=== PATIENT | female | born 1995 | race Caucasian/White ===

== ENCOUNTER 2018-12-17 08:49 | Outpatient (CLI) | payer OTHER | END 2018-12-17 20:08 | disposition home or self-care (01) | LOC: MRD 08:49 | PROVIDERS: ATTEND Internal Medicine | DX: Z49.02 Encounter for fitting and adjustment of peritoneal dialysis catheter (principal) | CPT/HCPCS: 74018 ==

== ENCOUNTER 2019-09-04 16:39 | Emergency (ER) | payer OTHER ==
[~2019-09-04] VITALS: Ht 162.6 cm; Wt 83.1 kg
[2019-09-04 16:59] VITALS: BP 165/106
[2019-09-04] MEDS ORDERED: ONDANSETRON 4 MG/2 ML VIAL IVP ONE (18:20)
[2019-09-04] MEDS ORDERED: DICYCLOMINE HCL LIQUID 20 MG, ALUMINUM HYD/MAG/SIMETHICONE 30 ML, LIDOCAINE VISCOUS 2% ... PO ONE ×3 (18:35)
[2019-09-04] MEDS ORDERED: MORPHINE SULFATE 4 MG/ML SYR IVP ONE (18:35)
[2019-09-04] MEDS ORDERED: LIDOCAINE VISCOUS 2% 20 ML UDC ONE (18:40)
[2019-09-04] MEDS ORDERED: ALUMINUM HYD/MAG/SIMETHICONE 30 ML UDC ONE (18:40)
[2019-09-04] MEDS ORDERED: DICYCLOMINE HCL LIQUID 10 MG/5 ML UDC ONE (18:40)
[2019-09-04 18:50] LABS: BASOPHILS % (AUTO) 0.2 % (0.0-2.0); EOSINOPHILS # (AUTO) 0.1 K/uL (0-0.4); EOSINOPHILS % (AUTO) 0.6 % (0.0-4.0); HEMATOCRIT 34.5 % (36-48); HEMOGLOBIN 11.2 g/dL (12.0-16.0); MEAN CORPUSCULAR HEMOGLOBIN 28 pg (27-31); MEAN CORPUSCULAR HGB CONC 32 g/dL (33-37); MEAN CORPUSCULAR VOLUME 87.4 fL (80-94); MONOCYTES # (AUTO) 0.7 K/uL (0.8-1.0); MONOCYTES % (AUTO) 5.7 % (1.7-9.3); NEUTROPHILS # (AUTO) 10.5 K/uL (1.8-7.7); NEUTROPHILS % (AUTO) 85.5 % (42.2-75.2); PLATELET COUNT (AUTO) 187 K/uL (140-450); RED BLOOD CELL COUNT(AUTO) 3.95 MIL/uL (4.20-5.40); RED CELL DISTRIBUTION WIDTH 13.8 % (11.6-13.7); WHITE BLOOD COUNT (AUTO) 12.3 K/uL (4.8-10.8)
[2019-09-04 19:04] LABS: ALBUMIN 3.1 g/dL (3.4-5.0); ANION GAP 17.1 (8-16); POTASSIUM 4.1 mmol/L (3.5-5.1); TOTAL BILIRUBIN 0.3 mg/dL (0.0-1.0)
[2019-09-04] MEDS ORDERED: NACL 0.9% 500 ML IV ONE (19:05)
[2019-09-04 19:10] LABS: CREATININE 16.5 mg/dL (0.6-1.3)
[2019-09-04] MEDS ORDERED: KETOROLAC 30 MG/ML VIAL IVP ONE (20:50)
[2019-09-04] MEDS ORDERED: PANTOPRAZOLE 40 MG INJ VIAL IVP ONE (20:50)
[2019-09-04 21:30] VITALS: BP 137/88
[2019-09-05 00:45] LABS: APPEARANCE,URINE CLEAR (CLEAR); BILIRUBIN,URINE NEGATIVE (NEGATIVE); BLOOD, URINE 1+ (NEGATIVE); COLOR,URINE YELLOW (YELLOW); LEUKOCYTE ESTERASE ,URINE NEGATIVE (NEGATIVE); NITRITE, URINE NEGATIVE (NEGATIVE); UGLUCOSE NEGATIVE (NEGATIVE)
[2019-09-05 00:57] LABS: RBC,URINE 0-5 /HPF (0-5); WBC,URINE 0-5 /HPF (0-5)
== END 2019-09-04 21:32 | disposition home or self-care (01) ==
LOC: MED 16:39
DX: I12.0 Hypertensive chronic kidney disease with stage 5 chronic kidney disease or end stage renal disease (principal); N18.6 End stage renal disease; R10.9 Unspecified abdominal pain; F12.10 Cannabis abuse, uncomplicated; Z99.2 Dependence on renal dialysis
CPT/HCPCS: 36415; 71045; 74021; 80053; 81001; 82150; 83690; 83880; 85025; 93005; 96374; 96375; 99285; C9113; J1885; J2270; J2405; J7030

== ENCOUNTER 2019-09-22 15:56 | Emergency (ER) | payer OTHER ==
[~2019-09-22] VITALS: Ht 162.6 cm; Wt 79.4 kg
[~2019-09-22 15:56] MED LIST: LISI10TA11 PO
[2019-09-22 16:03] VITALS: BP 146/89
[2019-09-22] MEDS ORDERED: MORPHINE SULFATE 4 MG/ML SYR IVP ONE (16:20)
[2019-09-22 16:43] LABS: BASOPHILS % (AUTO) 0.3 % (0.0-2.0); EOSINOPHILS # (AUTO) 0.1 K/uL (0-0.4); EOSINOPHILS % (AUTO) 1.6 % (0.0-4.0); HEMATOCRIT 25.9 % (36-48); HEMOGLOBIN 8.6 g/dL (12.0-16.0); LYMPHOCYTES # (AUTO) 0.9 K/uL (2.5-16.5); LYMPHOCYTES % (AUTO) 12.8 % (20.5-51.1); MEAN CORPUSCULAR HEMOGLOBIN 29 pg (27-31); MEAN CORPUSCULAR HGB CONC 33 g/dL (33-37); MEAN CORPUSCULAR VOLUME 88.2 fL (80-94); MONOCYTES # (AUTO) 0.6 K/uL (0.8-1.0); MONOCYTES % (AUTO) 8.6 % (1.7-9.3); NEUTROPHILS # (AUTO) 5.1 K/uL (1.8-7.7); NEUTROPHILS % (AUTO) 76.7 % (42.2-75.2); PLATELET COUNT (AUTO) 188 K/uL (140-450); RED BLOOD CELL COUNT(AUTO) 2.94 MIL/uL (4.20-5.40); RED CELL DISTRIBUTION WIDTH 14.5 % (11.6-13.7); WHITE BLOOD COUNT (AUTO) 6.7 K/uL (4.8-10.8)
[2019-09-22 16:59] LABS: ALBUMIN 2.4 g/dL (3.4-5.0); ANION GAP 8.3 (8-16); CARBON DIOXIDE 31.8 mmol/L (21-32); POTASSIUM 3.1 mmol/L (3.5-5.1); TOTAL BILIRUBIN 0.2 mg/dL (0.0-1.0)
[2019-09-22 17:35] LABS: APPEARANCE,URINE CLEAR (CLEAR); BILIRUBIN,URINE NEGATIVE (NEGATIVE); BLOOD, URINE TRACE-I (NEGATIVE); COLOR,URINE YELLOW (YELLOW); LEUKOCYTE ESTERASE ,URINE NEGATIVE (NEGATIVE); NITRITE, URINE NEGATIVE (NEGATIVE); PH,URINE 8.5 (5.0-9.0); UGLUCOSE TRACE (NEGATIVE)
[2019-09-22 17:55] LABS: RBC,URINE 0-5 /HPF (0-5)
[2019-09-22 17:56] LABS: WBC,URINE 0-5 /HPF (0-5)
[2019-09-22 18:09] VITALS: BP 141/86
== END 2019-09-22 18:09 | disposition home or self-care (01) ==
LOC: MED 15:56
DX: R51 Headache (principal); D64.9 Anemia, unspecified; E87.6 Hypokalemia; F12.90 Cannabis use, unspecified, uncomplicated; I10 Essential (primary) hypertension; N28.9 Disorder of kidney and ureter, unspecified; R53.1 Weakness; Z79.899 Other long term (current) drug therapy
CPT/HCPCS: 36415; 36600; 71045; 80053; 81001; 82803; 83605; 85025; 87040; 87086; 93005; 96374; 99285; J2270

== ENCOUNTER 2020-03-28 20:02 | Inpatient (IN) | payer OTHER, SELFPAY ==
[~2020-03-28] VITALS: Ht 162.6 cm; Wt 84.8 kg
[2020-03-28 20:26] VITALS: BP 114/76
--- NOTE | 2020-03-28 20:56 | NUR ---
PT W/C ASSISTED TO BED #4
--- NOTE | 2020-03-28 21:15 | NUR ---
25 Y/O FEMALE BIB SELF WITH C/O "SEVERE" 10/10 LOWER ABDOMINAL & PELVIC PAIN. SHE PRESENTS WITH NAUSEA AND VOMITING. SHE REPORTS SYMPTOMS STARTING TODAY THIS MORNING. REPORTS TAKING TYLENOL 1000MG FOR PAIN. ABDOMEN WAS FIRM, ROUND AND NON-TENDER TO TOUCH. ACTIVE BOWEL SOUNDS X 4 QUADRANTS. REPORTS HAVING ESRD STAGE 5. PT PLACED ON PLANT WRAPPER, PULSE OXIMETRY AND BP MONITORING. BED LOCKED AND IN LOWEST POSITION. PMHX: ESRD STAGE 5 NKA.
--- NOTE | 2020-03-28 21:16 | NUR ---
PT REPORTS RECEVING PERITONEAL DIALYSIS EVERY NIGHT FOR ESRD STATES "SHE DID NOT HAVE IT DONE TONIGHT". ACCESS SITE NOTED ON LUQ. SITE WAS INTACT NO REDNESS, SWELLING OR ABNORMAL DISCHARGE NOTED TO SITE.
[2020-03-28] MEDS ORDERED: ACETAMINOPHEN 325 MG TAB PO ONE (21:20)
[2020-03-28] MEDS ORDERED: ONDANSETRON 4 MG/2 ML VIAL IVP ONE (21:20)
[2020-03-28] MEDS ORDERED: MORPHINE SULFATE 4 MG/ML SYR IVP ONE ×2 (21:20→22:25)
--- NOTE | 2020-03-28 21:30 | NUR ---
IV PLACED IN L AC. LABS DRAWN AND GIVEN TO ODD JOB WORKER DAISY.
--- NOTE | 2020-03-28 21:47 | NUR ---
EKG BEING PERFORMED AT BEDSIDE.
[2020-03-28 21:48] LABS: BASOPHILS % (AUTO) 0.1 % (0.0-2.0); EOSINOPHILS % (AUTO) 0.1 % (0.0-4.0); HEMOGLOBIN 14.1 g/dL (12.0-16.0); LYMPHOCYTES # (AUTO) 0.3 K/uL (2.5-16.5); MEAN CORPUSCULAR HEMOGLOBIN 29 pg (27-31); MEAN CORPUSCULAR HGB CONC 34 g/dL (33-37); MEAN CORPUSCULAR VOLUME 86.9 fL (80-94); MONOCYTES # (AUTO) 0.1 K/uL (0.8-1.0); MONOCYTES % (AUTO) 5.1 % (1.7-9.3); NEUTROPHILS % (AUTO) 71.7 % (42.2-75.2); PLATELET COUNT (AUTO) 412 K/uL (140-450); RED BLOOD CELL COUNT(AUTO) 4.84 MIL/uL (4.20-5.40); RED CELL DISTRIBUTION WIDTH 14.5 % (11.6-13.7)
--- NOTE | 2020-03-28 21:55 | NUR ---
BLOOD CULTURES COLLECTED AND GIVEN TO TICKET MARKER DAISY.
--- NOTE | 2020-03-28 22:00 | NUR ---
PT STILL CONTINUES TO VERBALIZE HAVING "SEVERE" ABDOMINAL PAIN AT THIS TIME ER MD NOTIFIED. STATES MEDICATION HAVE BEEN NOT EFFECTIVE. VERBALIZES HAVING STILL VOMITING AND NAUSEA. OBSERVED WITH 30 ML OF CLEAR VOMIT. SHE PRESENTS WITH TACHYCARDIA HR OF 134. PULSES WERE BILAT STRONG. ER MD NOTIFIED. IN ALL EXTREMITIES. SHE REMAINS ON THE SALES SUPPORT ADVISOR, PULSE OXIMETRY AND BP MONITORING. BED LOCKED & IN LOWEST POSITION.
--- NOTE | 2020-03-28 22:03 | NUR ---
XRAY AT BEDSIDE.
[2020-03-28 22:10] LABS: WHITE BLOOD COUNT (AUTO) 1.4 K/uL (4.8-10.8)
[2020-03-28] MEDS ORDERED: PIPERACILLIN/TAZOBACTAM 3.375 GM in DEXTROSE 5% 50 ML IV ONE (22:15)
[2020-03-28] MEDS ORDERED: NACL 0.9% 500 ML IV ONE (22:15)
[2020-03-28 22:18] LABS: ALBUMIN 3.1 g/dL (3.4-5.0); ANION GAP 24.1 (8-16); CARBON DIOXIDE 18.1 mmol/L (21-32); POTASSIUM 3.2 mmol/L (3.5-5.1); TOTAL BILIRUBIN 0.6 mg/dL (0.0-1.0)
--- NOTE | 2020-03-28 22:20 | NUR ---
NOTIFIED DR. ALVARES OF PTS CRITICAL LAB VALUES; LACTIC ACID 8.4, WBC OF 1.4, BUN 64 AND AMMUNITION STOREKEEPER 10.1. NO NEW ORDERS GIVEN AT THIS TIME.
[2020-03-28 22:21] LABS: CREATININE 16.1 mg/dL (0.6-1.3)
[2020-03-28] MEDS ORDERED: PIPERACILLIN/TAZOBACTAM 3.375 GM VIAL IV ONE (22:38)
--- NOTE | 2020-03-28 22:39 | NUR ---
PT TAKEN TO CT VIA RLINETTE.
--- NOTE | 2020-03-28 22:40 | NUR ---
Karla griffiths in ED - 03/29/20 at 0424 by CINDY PT RETURNED FROM CT.
--- NOTE | 2020-03-28 23:00 | NUR ---
PT RETUNED FROM CT.
--- NOTE | 2020-03-28 23:12 | NUR ---
PT VERBALIZE HAVING MINOR RELIEF OF ABDOMINAL PAIN FROM 02/12 TO 10/13. STATES MEDICATION HAS ONLY PROVIDED MINOR RELIEF OF SYMPTOMS. SHE PRESENTS WITH TACHYCARDIA HR OF 132. ER MD NOTIFIED. SHE REMAINS ON THE SYNTHETIC STAPLE EXTRUDER, PULSE OXIMETRY AND BP MONITORING. BED LOCKED & IN LOWEST POSITION.
--- NOTE | 2020-03-28 23:40 | NUR ---
AMAURI AMIN AT BEDSIDE RE-EVALUATING PT.
--- NOTE | 2020-03-28 23:50 | NUR ---
PT WAS OFFERED TO USE THE BATHROOM VIA BEDPAN, PT UNABLE TO URINATE AT THIS TIME STATING, "NO I CAN'T GO RIGHT NOW". WILL RE-ATTEMPT IN 10 MINUTES FOR URINE COLLECTION.
[2020-03-29] MEDS ORDERED: ONDANSETRON 4 MG/2 ML VIAL IVP ONE
[2020-03-29] MEDS ORDERED: fentaNYL citrate 0.05 MG/ML VIAL IVP ONE
--- NOTE | 2020-03-29 | NUR ---
PT UNABLE TO GIVE URINE VIA BED TRIANA. WITH PERMISSION FROM PT ERMD GAVE VERBAL ORDER FOR STRAIGHT CATH. UA COLLECTED VIA STRAIGHT CATH WITH STERILE TECHNIQUE. 400ML OF YRLLOW CLEAR URINE COLLECTED IN UA BAG. PT TOLERATED WELL.
--- NOTE | 2020-03-29 00:02 | NUR ---
UA AND JENNIFER ANTIGEN SWAB COLLECTED AND TAKEN TO LAB.
[2020-03-29 00:08] LABS: APPEARANCE,URINE CLEAR (CLEAR); BILIRUBIN,URINE NEGATIVE (NEGATIVE); BLOOD, URINE TRACE-I (NEGATIVE); COLOR,URINE YELLOW (YELLOW); LEUKOCYTE ESTERASE ,URINE NEGATIVE (NEGATIVE); NITRITE, URINE NEGATIVE (NEGATIVE); PH,URINE 7.5 (5.0-9.0); UGLUCOSE 1+ (NEGATIVE)
[2020-03-29 00:17] LABS: BARBITURATE, URINE NEGATIVE ng/ml (NEG <=200); BENZODIAZEPINE, URINE NEGATIVE ng/mL (NEG <=200); CANNABINOID, URINE POSITIVE ng/mL (NEG <=50); COCAINE, URINE NEGATIVE ng/mL (NEG <=300); OPIATE, URINE NEGATIVE ng/mL (NEG <=2000); PHENCYCLIDINE SCREEN,URINE NEGATIVE ng/mL (NEG <=25)
[2020-03-29] MEDS ORDERED: ACETAMINOPHEN 325 MG TAB PO PRN (00:30)
[2020-03-29 00:45] LABS: RBC,URINE 0-5 /HPF (0-5); WBC,URINE 0-5 /HPF (0-5)
--- NOTE | 2020-03-29 01:00 | NUR ---
PT NOW VERBALIZES A RELEF IN PAIN LEVEL FROM 6/10 TO 2/10. DENIES HAVING ANY MORE NAUSEA & VOMITING AT THIS TIME. REMAINS TACHYCARDIC WITH A HR OF 135 ADMITTING MD AWARE. REPIRATIONS WERE EVEN AND UNLABORED. O2 SATURATION WAS 97% OF RA. CONTINUES ON APPLE PRESS OPERATOR, PULSE OXIMETRY AND BP MONITORING. BED LOCKED AND IN LOWEST POSITION.
--- NOTE | 2020-03-29 01:33 | NUR ---
RECEIVED CRITICAL LAB FROM [facility] OF LACTIC ACID OF 5.5. NOTIFIED ER MD DR. HERNANDEZ. NO NEW ORDERS AT THIS TIME.
--- NOTE | 2020-03-29 02:35 | NUR ---
Karla griffiths in EDM - 03/29/20 at 0446 by CINDY Patient will be admitted to care of Dr. Metcalf Admited to ICU. Will go to room 4. Belongings list completed. Report to October.
--- NOTE | 2020-03-29 02:35 | NUR ---
Patient will be admitted to care of Dr. Metcalf Admited to ICU. Will go to room 4. Belongings list completed. Report to Alessia LUCIANO.
--- NOTE | 2020-03-29 02:40 | NUR ---
RECEIVED PT FROM ER VIA WHEELCHAIR.PT AMBULATED TO BED WITH STEADY GAIT.MONITORS ATTACHED.ST NOTED ON MONITOR.ON ROOM AIR.DENIES SOB.DENIES COUGHING.WITH PERIPHERAL IV TO LT AC G20 INTACT.SALINE LOCK.PT ON 2 GRAMS SODIUM DIET.REQUESTED FOR APPLE JUICE. DENIES NAUSEA AT THIS TIME.W/PERITONEAL DIALYSIS ACCESS TO LT ABDOMEN.DRY AND INTACT DRESSING.PER PT SHE STILL VOIDS AT LEAST TWICE A DAY.W/RASHES NOTED TO BILATERAL LOWER EXTREMITIES.PHOTOS TAKEN.NO C/O PAIN AT THIS TIME.WILL CONTINUE TO MONITOR
[2020-03-29 04:00] VITALS: BP 111/77
[2020-03-29] MEDS: HYDROcodone/APAP 5/325 MG 1 TAB TAB PO PRN ×3 (04:32→22:07)
--- NOTE | 2020-03-29 04:32 | NUR ---
PT C/O ABDOMINAL PAIN 10/13.NON RADIATING.NORCO GIVEN ORDERED.
--- NOTE | 2020-03-29 06:08 | NUR ---
PT ASLEEP; EASILY AROUSABLE.NO S/SX OF PAIN NOTED.NO SOB NOTED
[2020-03-29 06:21] LABS: BASOPHILS % (AUTO) 0.2 % (0.0-2.0); EOSINOPHILS % (AUTO) 0.8 % (0.0-4.0); HEMOGLOBIN 12.7 g/dL (12.0-16.0); LYMPHOCYTES # (AUTO) 0.4 K/uL (2.5-16.5); LYMPHOCYTES % (AUTO) 32.8 % (20.5-51.1); MEAN CORPUSCULAR HEMOGLOBIN 29 pg (27-31); MEAN CORPUSCULAR HGB CONC 33 g/dL (33-37); MEAN CORPUSCULAR VOLUME 88.6 fL (80-94); MONOCYTES # (AUTO) 0.1 K/uL (0.8-1.0); NEUTROPHILS # (AUTO) 0.7 K/uL (1.8-7.7); NEUTROPHILS % (AUTO) 58.2 % (42.2-75.2); PLATELET COUNT (AUTO) 260 K/uL (140-450); RED CELL DISTRIBUTION WIDTH 14.5 % (11.6-13.7)
[2020-03-29 06:27] LABS: ALBUMIN 2.3 g/dL (3.4-5.0); ANION GAP 18.8 (8-16); CARBON DIOXIDE 22.1 mmol/L (21-32); PHOSPHORUS 5.6 mg/dL (2.5-4.9); TOTAL BILIRUBIN 0.5 mg/dL (0.0-1.0)
[2020-03-29 06:32] LABS: CREATININE 15.9 mg/dL (0.6-1.3); POTASSIUM 2.9 mmol/L (3.5-5.1)
[2020-03-29] MEDS ORDERED: KCL 20 MEQ/WATER INJ PREMIX 100 ML IV ONE (06:45)
[2020-03-29 08:00] VITALS: BP 91/65
[2020-03-29] MEDS: ONDANSETRON 4 MG/2 ML VIAL IVP PRN (08:01)
--- NOTE | 2020-03-29 08:01 | NUR ---
PT C/O NAUSEA, PAIN 12/13, DECLINES DILAUDID BECAUSE IT MADE HER SICK PREVIOUSLY, NOT DUE FOR NORCO YET, PRN ZOFRAN GIVEN, ASSISTED WITH REPOSITIONING FOR COMFORT, WILL CONTINUE TO MONITOR
--- NOTE | 2020-03-29 08:50 | NUR ---
KHADRA FROM [facility] ([facility]) CALLED FOR INFORMATION. Addendum: 03/29/20 at 0935 by Michelle Benjamin RN STAFF DEVELOPMENT EDUCATOR IS DIVINE AT [facility] [phone]
--- NOTE | 2020-03-29 08:53 | NUR ---
PATIENT HAS BEEN SCREENED AND CATEGORIZED HIGH NUTRITION RISK. PATIENT WILL BE SEEN WITHIN 1-2 DAYS OF ADMISSION. 03/29/20-03/30/[address]
[2020-03-29] MEDS: lisinopriL 20 MG TAB PO SCH (09:00)
[2020-03-29 09:06] LABS: WHITE BLOOD COUNT (AUTO) 1.3 K/uL (4.8-10.8)
[2020-03-29] MEDS: DOCUSATE SODIUM 250 MG GELCAP PO SCH (09:20)
--- NOTE | 2020-03-29 09:20 | NUR ---
NORCO AND COLACE GIVEN.
--- NOTE | 2020-03-29 11:02 | NUR ---
DR HARDING AT BEDSIDE FOR EVAL. INDIRA DIALYSIS NURSE NOTIFIED OF ORDER FOR PERIONEAL DIALYSIS FLUID REMOVAL.
--- NOTE | 2020-03-29 11:07 | NUR ---
SOCIAL WORK NOTE: SW WAS UNABLE TO MEET PATIENT AT BEDSIDE. SW CONTACTED PATIENT'S EMERGENCY CONTACT, SIGNIFICANT OTHER: TARYN CARIAS [phone]. SW LEFT VM TO COMPLETE ASSESSMENT. JACQUE WILL FOLLOW UP.
[2020-03-29] MEDS ORDERED: POTASSIUM CHLORIDE 20% 40 MEQ/15 ML UDC PO SCH (11:30)
--- NOTE | 2020-03-29 11:36 | NUR ---
PT RESTING COMFORTABLY IN BED, IVF INFUSING, TOLERATING WELL.
[2020-03-29 12:00] VITALS: BP 94/71
[2020-03-29] MEDS: HYDROmorphone 1 MG/ML AMP IVP PRN ×2 (12:38→16:55)
--- NOTE | 2020-03-29 14:24 | NUR ---
03/29/20 RD INITIAL ASSESSMENT COMPLETED PLEASE REFER TO NUTRITION ASSESSMENT UNDER CARE ACTIVITY FOR ESTIMATED NUTRITIONAL NEEDS. 1. CONSIDER CLEAR LIQUIDS D/T ABDOMINAL PAIN 2. CONSIDER RENAL AND HIGH PROTEIN DIET WHEN PATIENT IS MEDICALLY STABLE 3. RD TO FOLLOW-UP 2-3 DAYS, HIGH RISK BASHIR DUCKWORTH, RD
--- NOTE | 2020-03-29 15:38 | NUR ---
PT'S FATHER CALLED TO SPEAK WITH PT, PT AWAKE, TALKING ON THE PHONE WITH FATHER
[2020-03-29 16:00] VITALS: BP 95/65
--- NOTE | 2020-03-29 16:30 | NUR ---
DIALYSIS NURSE INDIRA AT BEDSIDE, PERITONEAL DIALYSIS FLUID REMOVED, SPECIMEN SENT TO LAB FOR CULTURE AND CELL COUNT PER ORDER, INDIRA WILL RETURN LATER TONIGHT FOR PERITONEAL DIALYSIS.
--- NOTE | 2020-03-29 16:55 | NUR ---
PT C/O SEVER LOWER ABD PAIN, MEDICATED WITH DILAUDID PER ORDER.
[2020-03-29] MEDS ORDERED: VANCOMYCIN 1,000 MG in DEXTROSE 5% 250 ML IV SCH (17:10)
--- NOTE | 2020-03-29 17:25 | NUR ---
LEFT AC IV LEAKING AND PAINFUL, DC'D, CATH TIP INTACT, BLEEDING CONTROLLED, NEW PIV STARTED TO RIGHT AC 20G, PT MELANIE WELL. VANCOMYCIN STARTED PER ORDER.
[2020-03-29] MEDS ORDERED: VANCOMYCIN PER PHARMACY MC PRN (19:40)
--- NOTE | 2020-03-29 19:41 | NUR ---
REPORT GIVEN TO LASER CUTTER MST NURSE MONIKA RN PT TO BE TRANSFERRD TO 120B
--- NOTE | 2020-03-29 19:50 | NUR ---
RECEIVED REPORT FROM ICU NURSE, LUCILLE RN. WILL WAIT FOR PT TO ARRIVE TO THE UNIT.
[2020-03-29 20:00] VITALS: BP 91/34
--- NOTE | 2020-03-29 20:00 | NUR ---
RECEIVED PT FROM ICU NURSE VIA WHEELCHAIR. PT IS AWAKE AND ALERT, A&OX4. ON 2L O2 NC WITH O2 SAT AT 97%. BREATHING IS UNLABORED. PT IS SINUS TACHYCARDIA. PT IS ANURIC. SKIN IS WARM AND DRY. SCATTERED RASH ALONG EXTREMITIES AND SCAB CLOSED ON THE LOWER EXTREMITY. IV IS IN THE RIGHT AC 20 GAUGE SALINE LOCKED. STANDARD PRECAUTIONS IN PLACE. WILL ASSESS VITAL SIGNS. PLAN OF CARE DISCUSSED.
--- NOTE | 2020-03-29 20:35 | NUR ---
PAGED DR. GAINES GOLF BALL MARKER FOR DR. STEVENS TO INFORM HIM ABOUT PT'S BP BEING 91/36. HR IS 120. WILL WAIT FOR A CALL BACK.
[2020-03-29] MEDS ORDERED: PIPERACILLIN/TAZOBACTAM 2.25 GM in DEXTROSE 5% 50 ML IV SCH (21:00)
[2020-03-29] MEDS ORDERED: MIDODRINE 5 MG TAB PO SCH (21:03)
--- NOTE | 2020-03-29 21:04 | NUR ---
SPOKE TO DR. GAINES ON THE PHONE AND INFORMED HIM ABOUT THE BP BEING 84/48 AND HR OF 120. DOCTOR ORDERED MIDODRINE TID 5MG PO. A ONE TIME DOSE SCHEDULED NOW. WILL ADMINISTER ONCE VERIFIED.
--- NOTE | 2020-03-29 21:07 | NUR ---
CALLED [facility] TO VERIFY ONE TIME DOSE OF MIDODRINE. SPOKE TO RACHELLE AND HE SAID HE WILL VERIFY THE ORDER SHORTLY.
--- NOTE | 2020-03-29 21:21 | NUR ---
PT WAS GIVEN MIDODRINE 5 MG PO. BP WAS 95/47 AND HR WAS 100. WILL CONTINUE TO MONITOR BP.
--- NOTE | 2020-03-29 21:23 | NUR ---
BUNNY, DIALYSIS NURSE AT BEDSIDE W/ PT. INFORMED HER ABOUT THE LOW BP AND HR. RN IS AWARE.
--- NOTE | 2020-03-29 22:00 | NUR ---
BUNNY, LINDA NURSE JUST LEFT. PERITONEAL DIALYSIS IS RUNNING. PT IS STABLE BUT COMPLAINS OF PAIN. WILL ADMINISTER PAIN PAINS. MUSTAPHA HOLLIS SAID SHE WILL BE BACK IN THE AM TO CHECK ON THE PT'S DIALYSIS.
[2020-03-29 22:06] LABS: APPEARANCE,SPUN,BODY FLUID CLEAR (CLEAR); APPEARANCE,UNSPUN,BODY FLUID CLOUDY (CLEAR); COLOR,BODY FLUID LT YELLOW (LT YELLOW); SPECIMENTYPE,BODY FLUID PERITONEAL
[2020-03-29 22:07] LABS: POLYNUCLEAR, BODY FLUID 96 %; RBC, BODY FLUID 30000 /cu. mm.; TOTAL VOLUME,BODY FLUID 40 mL; WBC, BODY FLUID 20300 /cu. mm.
--- NOTE | 2020-03-29 22:07 | NUR ---
NORCO WAS GIVEN FOR PAIN IN THE ABD AT A SCALE OF 6/10. PT STATES IT AN ACHING PAIN. BP WAS 106/58 AND PT IS STABLE. WILL CONTINUE TO MONITOR PAIN.
--- NOTE | 2020-03-29 22:15 | NUR ---
DR. PARKINSON WAS NOTIFIED VIA TEXT ABOUT THE PT'S RESULTS. PRELIMINARY RESULTS OF THE BLOOD, GRAM POSITIVE COCCI IN CHAINS. WILL WAIT FOR RESPONSE IF THERE IS ANY CHANGE IN ORDERS. DOCTOR WAS NOTIFIED.
[2020-03-29 23:05] LABS: GLUCOSE,BODY FLUID 93 mg/dL
[2020-03-29] MEDS ORDERED: GENTAMICIN PER PHARMACY MC PRN (23:55)
--- NOTE | 2020-03-30 | NUR ---
PT IS COMPLAINING OF TROUBLE BREATHING. O2 SAT IS AT 97% AND BREATHING IS UNLABORED. CALLED RT TO THE BEDSIDE. HE EVALUATED HER AND DETERMINED THAT LUNG SOUNDS WERE CLEAR AND NO DISTRESS WAS NOTED. PT WAS REPOSITIONED AND PT STATED THAT THE LEFT OR RIGHT LATERAL POSITION HELPED WITH BREATHING. WILL CONTINUE TO MONITOR.
[2020-03-30] MEDS ORDERED: GENTAMICIN 100 MG in DEXTROSE 5% 100 ML IV SCH (00:10)
[2020-03-30] MEDS ORDERED: GENTAMICIN 80 MG/2 ML VIAL ONE (01:21)
--- NOTE | 2020-03-30 01:33 | NUR ---
ZOSYN ANTIBIOTIC WAS DISCONTINUED AND GENTAMICIN 100 MG IN D5% 100 ML WAS ADDED. PT WAS GIVEN GENTAMICIN 100 MG ORDERED. EDUCATION WAS PROVIDED TO PT ON THE MEDICATION AND PT VERBALIZED UNDERSTANDING.
[2020-03-30] MEDS: HYDROmorphone 1 MG/ML AMP IVP PRN ×2 (01:46→21:24)
--- NOTE | 2020-03-30 01:46 | NUR ---
PT STATES SHE HAS PAIN AT A SCALE OF 10/10 IN THE ABDOMEN AREA. IT IS AN ACHING PAIN WITH NO RADIATING FACTORS. PT WAS GIVEN DILAUDID IVP PRN FOR SEVERE PAIN. BP WAS 118/55 PRIOR TO ADMINISTRATION OF MEDICATION. WILL CONTINUE TO MONITOR PAIN.
[2020-03-30] MEDS: ONDANSETRON 4 MG/2 ML VIAL IVP PRN ×2 (02:00→21:26)
--- NOTE | 2020-03-30 02:00 | NUR ---
PT HAD A SMALL AMOUNT OF EMESIS. CLEAR, LIQUID EMESIS WITH NO CONTENTS. PT WAS GIVEN ZOFRAN FOR NAUSEA AND VOMITING. PT IS NO LONGER VOMITING AND IS LAYING IN SEMI FOWLERS POSITION. O2 SAT IS 100% ON 2L O2 NC. BREATHING IS UNLABORED. ABDOMEN IS DISTENDED AND PERITONEAL DIALYSIS IS RUNNING. PT IS STABLE AT THIS TIME.
--- NOTE | 2020-03-30 03:23 | NUR ---
ROUNDED ON PT. SHE IS SLEEPING COMFORTABLY IN SEMI FOWLERS POSITION. SHE IS LAYING ON HER RIGHT LATERAL SIDE. BREATHING IS UNLABORED. CHEST RISE AND FALL IS SYMMETRICAL. NO PAIN OR DISTRESS NOTED. BED IS IN THE LOWEST POSITION AND CALL LIGHT IS WITHIN REACH. WILL CONTINUE TO MONITOR PT.
--- NOTE | 2020-03-30 03:28 | NUR ---
RT AGAIN AT BEDSIDE TO CHECK ON PT. PT IS STABLE AT THIS TIME. BREATHING IS UNLABORED. O2 SAT IS AT 99%. NO DISTRESS NOTED.
[2020-03-30] MEDS: HYDROcodone/APAP 5/325 MG 1 TAB TAB PO PRN (05:35)
--- NOTE | 2020-03-30 05:35 | NUR ---
PT STATES SHE HAS ABDOMINAL PAIN AT A SCALE OF 6/10. PT'S BP WAS 101/67 AND HR WAS 111. O2 SAT IS 98% ON 3L O2 NC. PT WAS GIVEN NORCO FOR PAIN. WILL CONTINUE TO MONITOR PAIN LEVEL.
--- NOTE | 2020-03-30 06:24 | NUR ---
PT IS SLEEPING. NO DISTRESS OR PAIN NOTED. PT IS ON 3L O2 NC AND BREATHING IS UNLABORED. CHEST RISE AND FALL IS SYMMETRICAL. CELL PHONE IS AT BEDSIDE WITHIN REACH. BED IS IN THE LOWEST POSITION. PT IS STABLE.
[2020-03-30 06:38] LABS: CORRECTED WHITE BLOOD COUNT 7.1 K/uL (4.5-11.0); HEMATOCRIT 36.2 % (36-48); MEAN CORPUSCULAR VOLUME 87.8 fL (80-94); RED BLOOD CELL COUNT(AUTO) 4.11 MIL/uL (4.20-5.40); WHITE BLOOD COUNT (AUTO) 7.1 K/uL (4.8-10.8)
[2020-03-30 06:39] LABS: MEAN CORPUSCULAR HEMOGLOBIN 29 pg (27-31); MEAN CORPUSCULAR HGB CONC 33 g/dL (33-37); PLATELET COUNT (AUTO) 171 K/uL (140-450); RED CELL DISTRIBUTION WIDTH 14.5 % (11.6-13.7)
[2020-03-30 06:48] LABS: ANION GAP 17.1 (8-16); CARBON DIOXIDE 23.6 mmol/L (21-32); TOTAL BILIRUBIN 0.3 mg/dL (0.0-1.0)
[2020-03-30 06:50] LABS: LYMPHOCYTES % (MANUAL) 10 % (20-46); MONOCYTES % (MANUAL) 4 % (5-12)
[2020-03-30 06:51] LABS: POTASSIUM 6.7 mmol/L (3.5-5.1)
[2020-03-30 06:52] LABS: CREATININE 14.9 mg/dL (0.6-1.3)
--- NOTE | 2020-03-30 06:52 | NUR ---
RECEIVED CRITICAL LAB RESULTS FROM TURNING AND BEADING MACHINE OPERATOR. POTASSIUM 6.7, BUN 76, CR 14.9. WILL INFORM DOCTOR GAMES DEALER.
--- NOTE | 2020-03-30 07:00 | NUR ---
PAGED DOCTOR NATHAN SAFETY LEADER FOR DR. STEVENS TO INFORM HIM OF THE LABS. WILL WAIT FOR A CALL BACK.
--- NOTE | 2020-03-30 07:08 | NUR ---
HAVEN'T RECEIVED A RESPONSE BACK YET AFTER PAGING DOCTOR ADMINISTRATIVE OFFICE SPECIALIST FOR DR. STEVENS. TEXTED DR. STEVENS ABOUT THE CRITICAL LABS. WILL AWAIT RESPONSE BACK.
--- NOTE | 2020-03-30 07:20 | NUR ---
ENDORSED PT TO DAY SHIFT NURSE FOR CONTINUITY OF CARE. PT IS STABLE AT THIS TIME. BREATHING IS UNLABORED. PT IS SLEEPING AND CHEST RISE AND FALL IS SYMMETRICAL. NO DISTRESS NOTED. DAY SHIFT NURSE AWARE OF CRITICAL LABS. PLAN OF CARE DISCUSSED.
--- NOTE | 2020-03-30 07:30 | NUR ---
RECEIVED PT AAOX4. NO SOB NOTED. NO C/O PAIN AT THIS TIME. INSTRUCTED PT TO CALL FOR ASSISTANCE, CALL LIGHT WITHIN REACH, PT VERBALIZED UNDERSTANDING.
[2020-03-30 08:00] VITALS: BP 116/53
[2020-03-30] MEDS: lisinopriL 20 MG TAB PO SCH (09:00)
--- NOTE | 2020-03-30 09:30 | NUR ---
BUNNY, DIALYSIS NURSE STATED TADENICE PERITONEAL DIALYSIS OUTPUT: 438 MLS
[2020-03-30] MEDS: ALBUTEROL 0.083% 2.5 MG/3 ML NEBU INH SCH (09:45)
[2020-03-30] MEDS ORDERED: INSULIN REGULAR, HUMAN 100 UNIT/ML VIAL IV SCH (10:00)
--- NOTE | 2020-03-30 10:00 | NUR ---
DR. REGAN NOTIFIED REGARDING THE CONSULT. PER MD, HE WILL SCHEDULE PT FOR REMOVAL OF PERITONEAL DIALYSIS CATH ANG TUNNELED CATH PLACEMENT ON SATURDAY. DR. STEVENS AND DR. DONIS MADE AWARE.
[2020-03-30] MEDS: LACTULOSE 20 GM/30 ML UDC PO SCH (10:09)
[2020-03-30] MEDS: DOCUSATE SODIUM 250 MG GELCAP PO SCH (10:10)
[2020-03-30] MEDS: MIDODRINE 5 MG TAB PO SCH ×3 (10:11→17:00)
[2020-03-30] MEDS: DEXTROSE 50% 50 ML SYR IVP SCH (10:14)
[2020-03-30 11:28] VITALS: BP 116/53
[2020-03-30 12:00] VITALS: BP 110/68
--- NOTE | 2020-03-30 14:00 | NUR ---
PT RESTING COMFORTABLY, NO SOB NOTED.
[2020-03-30 16:00] VITALS: BP 132/68
--- NOTE | 2020-03-30 16:06 | NUR ---
DC PLANN[age] YRS OLD FEMALE PATIENT WAS ADMITTED FROM HOME WITH A DX OF SEPSIS ,ABDOMINAL PATIENT PAT HAS A HX OF HTN AND ESRD ON PERITONEAL DIALYSIS. CXR NEGATIVE , CT ABD SHOWED MILD SCATTERED ASCITES . BODY FLUID CULTURE SENT TO LAB . ADMINISTERED ROCEPHIN IV ABX. CONSULTED WITH BERNA AND HANSA . DC PLAN TO GO HOME WHEN STABLE CM TO FOLLOW. Addendum: 04/04/20 at 1618 by Chapis Abarca RN DC PLANNING: PT HAS [facility] EVAL ORDER FAXED TO [facility] , SPOKE WITH JACEK REVIEWING THE PAPERWORK NO BED AT THIS TIME, WILL F/U TOMORROW. CM TO FOLLOW Addendum: 04/05/20 at 1003 by Alina Doyle CM DC SUBSTATION DESIGNER: FAXED UPDATED CLINICALS TO JACEK FROM [facility]. Addendum: 04/05/20 at 1127 by Naila Mena CM PER ADY, PATIENT GOT ACCEPTED PENDING AUTH AND FACILITY OF CHOICE. SARWAT SUBRAMANIAN [facility] MADE AWARE. AWAITING FOR RESPONSE. Addendum: 04/05/20 at 1137 by Naila Mena DC PLAN TO LTAC DISCUSSED WITH THE PATIENT AND IS IN AGREEMENT. SHE REQUESTED TO HAVE THE [facility] LIAISON CALL HER. SHE ALSO STATED THAT SHE PREFERS [facility]. ADY MADE AWARE. Addendum: 04/05/20 at 1157 by Naila Mena CM PER SARWAT OF IE, LASHAWN OR [facility] IS COVERING FOR HER TODAY. PER LASHAWN OF IE, LTAC IS A LITTLE BIT TOO MUCH FOR THIS PATIENT, WE SHOULD TRY SNF FIRST. INFORMED HIM THAT I WILL DISCUSS IT WITH DR. EVANS. WILL FOLLOW UP. Addendum: 04/05/20 at [address] Mena CM DR. EVANS MADE AWARE, AWAITING FOR RESPONSE. Addendum: 04/05/20 at 1524 by Naila Mena CM PER DR. EVANS, WILL DC PATIENT TO HOME WITH IV ANTIBIOTICS PENDING ID AND NEPHTARAH'S RECOMMENDATIONS. Addendum: 04/05/20 at 1528 by Naila Mena CONTACTED LASHAWN OF [facility], NO ANSWER. LEFT MESSAGE. WILL FOLLOW UP. Addendum: 04/06/20 at 1118 by Naila Mena LATE ENTRY: RECEIVED A MESSAGE FROM LASHAWN OF [facility] REGARDING DC PLAN FOR THIS PATIENT. RETURNED HIS PHONE CALL AND UPDATED HIM OF THE PLAN. HE STATED SARWAT MIGHT BE BACK TODAY. RECEIVED A MESSAGE FROM SARWAT THAT SHE IS BACK TODAY. UPDATED HER OF THE PATIENT'S DC PLAN DISCUSSED WITH DR. EVANS. UPDATED HER WELL THAT ID SAW THE PATIENT LAST NIGHT AND ORDERED BLOOD CS AND IT IS STILL PENDING. SHE MENTIONED THAT PATIENT WAS WITH [facility] [phone] [facility] TRANSITIONAL [facility] PRIOR TO ADMISSION. HOWEVER, CAN REACH OUT TO [facility] AND [facility] IF PATIENT WILL BE NEEDING HOME HEALTH AND IV ANTIBIOTICS. WILL FOLLOW UP. Addendum: 04/06/20 at 1143 by Naila Mena CM CONTACTED [facility] AT [phone], ABLE TO SPEAK TO GRISELDA AND SHE CONFIRMED THAT PATIENT IS THEIR PD PATIENT. INFORMED HER THAT PD CATH WAS REMOVED AND SITE CHANGED TO AN HD CATH AND DR. PIERCE WANTS THE PATIENT TO CONTINUE HD AT [facility]. SHE PROVIDED ME WITH THEIR FAX NUMBER [phone]. CLINICALS SENT TO THE PROVIDED NUMBER. CONTACTED [facility] AT [phone], ABLE TO SPEAK TO JOVITA. HE PROVIDED ME WITH THEIR DIRECT NUMBER [phone] AND FAX NUMBER [phone]. REFERRAL SENT. [facility] INFORMED OF THE NEW REFERRAL AND CLINICALS WAS FAXED TO [phone]. WILL FOLLOW UP. Addendum: 04/06/20 at 1432 by Naila Mena CM CONTACTED [facility] AT [phone], ABLE TO SPEAK TO ABDIAS AND SHE CONFIRMED THAT THEY RECEIVED CLINICALS AND IS REVIEWING IT. CONTACTED [facility] [place] AT [phone], ABLE TO SPEAK TO MIROSLAVA AND SHE CONFIRMED THAT THEY RECEIVED THE REFERRAL. INFORMED HER THAT THERE IS NO DC ORDER YET. [facility] [phone] CONFIRMED THAT THEY RECEIVED THE REFERRAL AND THEIR COORDINATOR WILL FOLLOW UP WITH ME ONCE DC ORDER IS UP. Addendum: 04/07/20 at 1223 by Alina Doyle DC SUBSTATION DESIGNER: FOLLOWED UP WITH [facility] AND SPOKE TO ROLA IN ADMISSION. THEY ARE ABLE TO ACCEPT THIS PATIENT. SHE IS REQUESTING FOR THE ORDER OF HOW LONG THE IV ABX WILL BE ONCE WE RECEIVE IT. Addendum: 04/07/20 at 1345 by Alina Doyle CM NADINE BLAND: SPOKE TO PACHECO AT [facility] THEY ARE JUST WAITING ON AN ORDER FOR THE IV AND FLUSH ORDERS. SHE STATED IF PATIENT IS DISCHARGED WITH V[facility]CO THEY WILL NEED TROPH LABS. Addendum: 04/07/20 at 1347 by Naila Mena CM PER DR. EVANS, HE IS WAITING FOR ID TO CLEAR THE PATIENT AND PLAN FOR TUNNELLED CATH PRIOR TO DISCHARGE. Addendum: 04/08/20 at 1135 by Alina Doyle CM NADINE SUBSTATION DESIGNER: FOLLOWED UP WITH [facility] AND SPOKE TO PATIENTS CHAIR TIME WILL BE T,TH,SAT AT 12:30 PM Addendum: 04/08/20 at 1220 by Alina Doyle CM NADINE SUBSTATION DESIGNER: SCHEDULED PATIENT A FOLLOW UP APPOINTMENT WITH PCP GABO WARREN. APPOINTMENT IS SCHEDULED ON Saturday AT 9:[address] APPT REMINDER IN PATIENTS CHART. Addendum: 04/08/20 at 1428 by Alina Doyle CM NADINE HULLNER: GIFTY RECEIVED A PHONE CALL FROM MIROSLAVA AT [facility] PATIENTS NEW CHAIR TIME IS T,TH,SAT AT 8:30 AM Addendum: 04/11/20 at 1524 by Naila Mena CM DC PLAN DISCUSSED WITH DR. GAINES. PER DR. GAINES WILL DC TODAY ONCE TUNNELED CATH IS PLACED WITH ORAL VANCOMYCIN. WILL FOLLOW UP. PRIMARY MUSTAPHA JAQUEZ MADE AWARE. Addendum: 04/11/20 at 1631 by Naila Mena CM SPOKE TO DR. GOTTI REGARDING PLAN FOR TUNNELED CATH PLACEMENT. PER DR. DR. GOTTI PATIENT IS SCHEDULED FOR TUNNELED CATH PLACEMENT TO FOLLOW ANOTHER PATIENT TONIGHT. HE STATED DC AFTER DIALYSIS. DR. GAINES MADE AWARE. PER MUSTAPHA JAQUEZ PATIENT DOES NOT HAVE THE SCHEDULE YET AND PATIENT IS ON DIALYSIS T-TH-SAT. Addendum: 04/12/20 at 1040 by Alina Doyle CM NADINE HULLNER: [facility] PRESCRIPTION CAN BE FILLED AT [facility]. SHE STATED THAT THEY HAVE RECEIVED THE ORDER AND SENT IT TO THE PHARMACY. Addendum: 04/12/20 at 1042 by Alina Doyle CM NADINE BLAND: [facility]: [address] [place] [id number] Addendum: 04/12/20 at 1206 by Naila Mena PER PRIMARY RN, PATIENT IS ON DIALYSIS NOW AND DC AFTER DIALYSIS. Addendum: 04/12/20 at 1548 by Naila Mena CM PER PRIMARY RN MELVI WALLS DOES NOT NEED HOME HEALTH FOR WOUND CARE ANY MORE. PD INCISION SITE IS INTACT. SHE WILL REMOVE LYNDSAY PRIOR TO DC. DCP MADE AWARE.
--- NOTE | 2020-03-30 17:00 | NUR ---
PROAMATINE SCHEDULED PO NOT GIVEN, PT'S LATEST BP: 1382/68 MM[facility]
--- NOTE | 2020-03-30 18:00 | NUR ---
BED BATH DONE BY BLOCK MASON REQUESTED BY PT. BATH TOLERATED WELL.
--- NOTE | 2020-03-30 18:54 | NUR ---
GRADY NURSE IS HERE TO START PERITONEAL DIALYSIS X 10 HRS.
--- NOTE | 2020-03-30 19:01 | NUR ---
PT RESTING. NO SOB NOTED. NO COMPLAINTS MADE. WILL ENDORSE TO NEXT SHIFT NURSE FOR CONTINUITY OF CARE.
--- NOTE | 2020-03-30 19:07 | NUR ---
RECD. RESTING IN BED, AWAKE, A/OX4. RESPIRATION EVEN AND UNLABORED. ON AT 4 LITERS N/C, 02 SATURATION AT 94%. IV SALINE LOCK AT THE RIGHT AC G20, PATENT AND INTACT. PERITONEAL DIALYSIS ON GOING. SAFETY MEASURES ENFORCED. BED IN THE LOWEST POSITION, CALL LIGHT IN REACH. DENIES PAIN . Addendum: 03/30/20 at 2046 by Yandy Katz LVN CORRECTION: THIS NOTES WAS ENTERED BY YANDY DOS SANTOS.
--- NOTE | 2020-03-30 20:10 | NUR ---
COMPLAINT OF FEELING NAUSEATED AND ABDOMINAL PAIN 11/12.
--- NOTE | 2020-03-30 20:35 | NUR ---
CAME TO PATIENT'S ROOM WITH THE MEDICATIONS BUT PATIENT IS SLEEPING SOUNDLY AND COMFORTABLY.
--- NOTE | 2020-03-30 21:26 | NUR ---
NAUSEATED, MEDICATED WITH ZOFRAN BY MUSTAPHA PRECIADO.
--- NOTE | 2020-03-30 21:35 | NUR ---
DR. TESHA ARIAS ORDERED REMOVAL OF PERITONEAL DIALYSIS CATH TO RESOLVE PERITONITIS.
[2020-03-31] VITALS: BP 122/67
--- NOTE | 2020-03-31 | NUR ---
SLEEPING COMFORTABLY IN BED.
--- NOTE | 2020-03-31 02:48 | NUR ---
Patient's Plan of Care was discussed and reviewed with VALUE STREAM MANAGER: YANDY MCGRAW
--- NOTE | 2020-03-31 03:35 | NUR ---
PERITONEAL DIALYSIS ON GOING. PATIENT STILL SLEEPING COMFORTABLY.
[2020-03-31 04:00] VITALS: BP 126/66
[2020-03-31] MEDS: HYDROmorphone 1 MG/ML AMP IVP PRN ×3 (05:00→16:59)
[2020-03-31] MEDS: ONDANSETRON 4 MG/2 ML VIAL IVP PRN ×3 (05:03→16:58)
--- NOTE | 2020-03-31 05:03 | NUR ---
NAUSEATED, MEDICATED WITH ZOFRAN IVP BY BELTRAN PER MD ORDER.
--- NOTE | 2020-03-31 06:03 | NUR ---
NO NAUSEA NOTED, SLEEPING COMFORTABLY IN BED.
[2020-03-31 06:24] LABS: EOSINOPHILS # (AUTO) 0.1 K/uL (0-0.4); EOSINOPHILS % (AUTO) 0.6 % (0.0-4.0); HEMATOCRIT 31.8 % (36-48); HEMOGLOBIN 10.7 g/dL (12.0-16.0); LYMPHOCYTES # (AUTO) 0.4 K/uL (2.5-16.5); LYMPHOCYTES % (AUTO) 3.4 % (20.5-51.1); MEAN CORPUSCULAR HEMOGLOBIN 29 pg (27-31); MEAN CORPUSCULAR HGB CONC 34 g/dL (33-37); MEAN CORPUSCULAR VOLUME 86.7 fL (80-94); MONOCYTES # (AUTO) 0.2 K/uL (0.8-1.0); MONOCYTES % (AUTO) 1.7 % (1.7-9.3); NEUTROPHILS # (AUTO) 11.3 K/uL (1.8-7.7); NEUTROPHILS % (AUTO) 94.3 % (42.2-75.2); PLATELET COUNT (AUTO) 184 K/uL (140-450); RED BLOOD CELL COUNT(AUTO) 3.67 MIL/uL (4.20-5.40); RED CELL DISTRIBUTION WIDTH 14.5 % (11.6-13.7)
[2020-03-31 06:59] LABS: ANION GAP 14.7 (8-16); CARBON DIOXIDE 26.6 mmol/L (21-32); POTASSIUM 4.3 mmol/L (3.5-5.1)
--- NOTE | 2020-03-31 07:00 | NUR ---
CONDITION REMAIN STABLE. WILL ENDORSE TO AM SHIFT NURSE FOR CONTINUITY OF CARE.
[2020-03-31 07:03] LABS: CREATININE 12.4 mg/dL (0.6-1.3)
--- NOTE | 2020-03-31 07:10 | NUR ---
RECEIVED REPORT FROM NIGHT RN. POC DISCUSSED. PT IS RESTING, EYES CLOSED. NO SOB NOTED. NO S/S OF NAUSEA OR VOMITING. AFEBRILE. WILL CONTINUE TO MONITOR.
[2020-03-31] MEDS: DOCUSATE SODIUM 250 MG GELCAP PO SCH (08:55)
[2020-03-31] MEDS: LACTULOSE 20 GM/30 ML UDC PO SCH (08:55)
[2020-03-31] MEDS: lisinopriL 20 MG TAB PO SCH (09:01)
[2020-03-31] MEDS: MIDODRINE 5 MG TAB PO SCH ×3 (09:04→17:00)
[2020-03-31] MEDS: DEXTROSE 50% 50 ML SYR IVP SCH (10:55)
--- NOTE | 2020-03-31 11:10 | NUR ---
BS 18. D 50/5O WAS GIVEN. RECHECKED MADE AND OBTAINED BS 123. PT IS A/O X3. WILL CONTINUE TO MONITOR.
[2020-03-31 16:00] VITALS: BP 125/68
[2020-03-31] MEDS ORDERED: VANCOMYCIN 500 MG in DEXTROSE 5% 100 ML IV SCH (16:00)
[2020-03-31] MEDS: BLOOD GLUCOSE MONITORING 1 DEV DEV FS SCH ×2 (16:48→21:25)
[2020-03-31] MEDS ORDERED: DEXTROSE 50% 50 ML SYR IVP ONE (17:10)
[2020-03-31] MEDS: DEXT 5% /NACL 0.9% 1,000 ML IV SCH (17:15)
--- NOTE | 2020-03-31 17:15 | NUR ---
DR. Guillermo STEVENS NOTIFIED OF CONSISTENT LOW BS. LATEST BS 35. MD ORDERED TO GIVE D50/50 X1 AND START IVF OF D5 NS TO RUN AT 70 ML/HR.
--- NOTE | 2020-03-31 18:00 | NUR ---
BS RECHECKED AND OBTAINED 66. PT PROVIDED OJ 120 ML. PT IS DEMONSTRATED GEN WEAKNESS BUT RESPONSIVE TO VERBAL STIMULI.
--- NOTE | 2020-03-31 19:15 | NUR ---
ENDORSED PT TO NIGHT RN. POC DISCUSSED. NO DISTRESS NOTED. NO CHANGE OF CONDITION. ENDORSED RN TO FF UP CONSENT FOR HD CONSENT. PT WILL BE NPO POST MIDNIGHT. INCOMING NURSE IS AWARE.
--- NOTE | 2020-03-31 19:16 | NUR ---
RECEIVED REPORT FROM LORRIE MCMAHON RN. PT AOX4 ON O2 2L N/C. NO S/S RESPIRATORY DISTRESS. NO C/O PAIN AT THIS TIME. IV SITE RFA, PATENT AND INTACT, INFUSING D5NS AT 70ML/HR. POC DISCUSSED. PT VERBALIZED UNDERSTANDING. SAFETY MEASURES IN PLACE. CALL LIGHT WITHIN REACH. WILL CONTINUE TO MONITOR
[2020-03-31 20:00] VITALS: BP 119/48
--- NOTE | 2020-03-31 21:25 | NUR ---
PT BLOOD SUGAR 123. NO INSULIN COVERAGE NEEDED
--- NOTE | 2020-03-31 22:00 | NUR ---
COLLECTED PD FLUID SPECIMEN PER DIALYSIS NURSE
[2020-04-01] MEDS: ONDANSETRON 4 MG/2 ML VIAL IVP PRN ×2 (00:05→06:59)
[2020-04-01] MEDS: HYDROmorphone 1 MG/ML AMP IVP PRN (00:10)
--- NOTE | 2020-04-01 00:50 | NUR ---
PT ASLEEP IN BED. RESPIRATIONS EVEN AND UNLABORED. NO DISTRESS NOTED. WILL CONTINUE TO MONITOR
[2020-04-01] MEDS ORDERED: GENTAMICIN 80 MG in DEXTROSE 5% 100 ML IV SCH ×2 (01:30→11:00)
[2020-04-01] MEDS ORDERED: GENTAMICIN 80 MG/2 ML VIAL ONE (01:36)
--- NOTE | 2020-04-01 01:43 | NUR ---
ADMINISTERED IV GENTAMICIN. PT ASLEEP. RESPIRATIONS EVEN AND UNLABORED. NO DISTRESS NOTED. WILL CONTINUE TO MONITOR
[2020-04-01 02:38] LABS: SPECIMENTYPE,BODY FLUID PERITONEAL
[2020-04-01 02:39] LABS: APPEARANCE,UNSPUN,BODY FLUID CLEAR (CLEAR)
[2020-04-01 02:40] LABS: APPEARANCE,SPUN,BODY FLUID CLEAR (CLEAR); COLOR,BODY FLUID COLORLESS (LT YELLOW)
[2020-04-01 03:52] LABS: TOTAL VOLUME,BODY FLUID 80 mL
[2020-04-01 04:00] VITALS: BP 129/70
[2020-04-01 04:04] LABS: RBC, BODY FLUID 0 /cu. mm.; WBC, BODY FLUID 0 /cu. mm.
[2020-04-01 04:17] LABS: GLUCOSE,BODY FLUID 1989 mg/dL
[2020-04-01] MEDS: BLOOD GLUCOSE MONITORING 1 DEV DEV FS SCH ×4 (05:17→20:04)
--- NOTE | 2020-04-01 05:20 | NUR ---
PT BLOOD SUGAR 99, NO COVERAGE NEEDED. NO DISTRESS NOTED. WILL CONTINUE TO MONITOR
[2020-04-01 06:16] LABS: BASOPHILS % (AUTO) 0.2 % (0.0-2.0); EOSINOPHILS # (AUTO) 0.2 K/uL (0-0.4); EOSINOPHILS % (AUTO) 1.6 % (0.0-4.0); HEMATOCRIT 29.6 % (36-48); HEMOGLOBIN 9.9 g/dL (12.0-16.0); LYMPHOCYTES # (AUTO) 0.7 K/uL (2.5-16.5); LYMPHOCYTES % (AUTO) 5.3 % (20.5-51.1); MEAN CORPUSCULAR HEMOGLOBIN 29 pg (27-31); MEAN CORPUSCULAR HGB CONC 34 g/dL (33-37); MEAN CORPUSCULAR VOLUME 86.4 fL (80-94); MONOCYTES # (AUTO) 0.5 K/uL (0.8-1.0); MONOCYTES % (AUTO) 3.6 % (1.7-9.3); NEUTROPHILS # (AUTO) 12.2 K/uL (1.8-7.7); NEUTROPHILS % (AUTO) 89.3 % (42.2-75.2); PLATELET COUNT (AUTO) 186 K/uL (140-450); RED BLOOD CELL COUNT(AUTO) 3.42 MIL/uL (4.20-5.40); RED CELL DISTRIBUTION WIDTH 14.6 % (11.6-13.7); WHITE BLOOD COUNT (AUTO) 13.6 K/uL (4.8-10.8)
[2020-04-01 06:54] LABS: PROTHROMBIN TIME 8.9 secs (10.8-13.4)
[2020-04-01 07:00] LABS: ANION GAP 12.2 (8-16); CARBON DIOXIDE 28.8 mmol/L (21-32)
--- NOTE | 2020-04-01 07:20 | NUR ---
PER WASH AND GREASER, PT VOMITED 600 ML BLACK FLUID. ENDORSED PT TO DAY RN FOR CONTINUITY OF CARE. PT IS IN STABLE CONDITION
--- NOTE | 2020-04-01 07:25 | NUR ---
RECEIVED REPORT FROM NIGHT NURSE FOR CONTINUITY OF CARE, PT IS STABLE, PT VOMITING, PT STATES SHE FEELS FAINT, INTRODUCE SELF, PT HAS RIGHT FA 20G INFUSING D5NS AT 70ML/H, PT HAS PERITONEAL DIALYSIS ONGOING, PT HAS RASHES ON HER BODY, SAFETY MEASURES IN PLACE, CALL LIGHT WITHIN REACH.
[2020-04-01] MEDS: DEXT 5% /NACL 0.9% 1,000 ML IV SCH ×2 (07:28→21:46)
[2020-04-01 07:39] LABS: CREATININE 11.5 mg/dL (0.6-1.3)
[2020-04-01 08:00] VITALS: BP 126/78
[2020-04-01] MEDS ORDERED: PHENYLEPHRINE 10 MG/ML VIAL ONE (09:00)
[2020-04-01] MEDS ORDERED: ePHEDrine 50 MG/ML VIAL ONE (09:00)
[2020-04-01] MEDS: lisinopriL 20 MG TAB PO SCH (09:00)
[2020-04-01] MEDS ORDERED: SEVOFLURANE 250 ML BTL INH ONE (09:00)
[2020-04-01] MEDS ORDERED: DEXAMETHASONE 4 MG/ML VIAL ONE (09:00)
[2020-04-01] MEDS ORDERED: LIDOCAINE 2% 100 MG/5 ML SYR IVP ONE (09:00)
[2020-04-01] MEDS: DOCUSATE SODIUM 250 MG GELCAP PO SCH (09:00)
[2020-04-01] MEDS: MIDODRINE 5 MG TAB PO SCH ×3 (09:00→18:05)
[2020-04-01] MEDS ORDERED: ROCURONIUM 50 MG/5 ML VIAL IV ONE (09:00)
[2020-04-01] MEDS ORDERED: SUCCINYLCHOLINE CHLORIDE 200 MG/10 ML VIAL IVP ONE (09:00)
[2020-04-01] MEDS: LACTULOSE 20 GM/30 ML UDC PO SCH (09:00)
[2020-04-01] MEDS ORDERED: MIDAZOLAM 2 MG/2 ML VIAL ONE (09:00)
[2020-04-01] MEDS ORDERED: PROPOFOL 200 MG/20 ML VIAL IV ONE (09:00)
[2020-04-01] MEDS ORDERED: fentaNYL citrate 0.05 MG/ML VIAL ONE (09:00)
[2020-04-01] MEDS ORDERED: NEOSTIGMINE 1:1000 10 MG/10 ML VIAL ONE (09:00)
[2020-04-01] MEDS ORDERED: GLYCOPYRROLATE 0.2 MG/ML VIAL ONE (09:00)
--- NOTE | 2020-04-01 09:00 | NUR ---
PT OFF UNIT FOR PROCEDURE,
[2020-04-01] MEDS ORDERED: BUPIVACAINE MPF 0.25% 10 ML VIAL INJ ONE (09:05)
[2020-04-01] MEDS ORDERED: LIDOCAINE 1% 500 MG/50 ML VIAL ONE (09:05)
[2020-04-01] MEDS: ALBUTEROL 0.083% 2.5 MG/3 ML NEBU INH SCH (10:00)
[2020-04-01] MEDS: NACL 0.9% 1,000 ML IV SCH ×2 (10:20→18:40)
[2020-04-01] MEDS ORDERED: HYDROmorphone 1 MG/ML AMP IVP PRN (10:20)
[2020-04-01] MEDS ORDERED: MEPERIDINE 25 MG/ML SYR IVP PRN (10:20)
[2020-04-01] MEDS ORDERED: ONDANSETRON 4 MG/2 ML VIAL IVP PRN (10:20)
[2020-04-01] MEDS ORDERED: DEXTROSE 5% IV SCH (11:00)
[2020-04-01] MEDS ORDERED: GENTAMICIN IV SCH (11:00)
[2020-04-01] MEDS: HYDROmorphone PFS 2 MG/ML SYR ONE ×2 (11:05→11:30)
--- NOTE | 2020-04-01 11:35 | NUR ---
PT BACK IN ROOM FROM OR, PT HAS LEFT FA 20G INFUSING NORMAL SALINE VIA GRAVITY, PT LETHARGIC AND IN PAIN, PER OR NURSE PT MEDICATED WITH DILAUDID 0.5MG, S/P PF REMOVAL WITH 3 ABD STITCHES, PT HAS 5 ABD BANDAGES ON, PT ON 2L OXYGEN, PT HAS RIGHT NECK BALJIT CATH, WILL CONTINUE TO MONITOR VITALS PER PROTOCOL.
--- NOTE | 2020-04-01 11:37 | NUR ---
04/01/20 RD FOLLOW UP COMPLETED PLEASE REFER TO NUTRITION ASSESSMENT UNDER CARE ACTIVITY FOR ESTIMATED NUTRITIONAL NEEDS. 1. CONTINUE CLEAR LIQUIDS D/T ABDOMINAL PAIN 2. CONSIDER RENAL AND HIGH PROTEIN DIET WHEN PATIENT IS MEDICALLY STABLE 3. RD TO FOLLOW-UP 2-3 DAYS, HIGH RISK KOFI CASTELLANOS, RD
[2020-04-01 12:00] VITALS: BP 98/57
[2020-04-01] MEDS: DEXTROSE 50% 50 ML SYR IVP SCH (12:04)
--- NOTE | 2020-04-01 12:08 | NUR ---
ADMINISTERED SCHEDULED MEDICATION, MEDICATION EDUCATION PROVIDED, PT TOLERATED WELL, PT IS STABLE, WILL CONTINUE TO MONITOR.
--- NOTE | 2020-04-01 13:25 | NUR ---
RECEIVED PT FROM RN, 2L NC NOTED, IV TO WRIST @ 70ML/HR D5NS, PT IS AWAKE IN BED, TELE MONITOR IS ON, SAFETY AND FALL PRECAUTIONS IN PLACE. WILL CONTINUE TO MONITOR.
--- NOTE | 2020-04-01 13:25 | NUR ---
ENDORSE PT TO NURSE JOHNSON FOR CONTINUITY OF CARE, PT IS STABLE
--- NOTE | 2020-04-01 13:32 | NUR ---
ADMINISTERED SCHEDULED MEDICATION, MEDICATION EDUCATION PROVIDED, PT TOLERATED WELL, PT IS STABLE, WILL CONTINUE TO MONITOR.
--- NOTE | 2020-04-01 14:30 | NUR ---
PT IS AWAKE IN BED, NO SIGNS OF DISTRESS NOTED, WILL CONTINUE TO MONITOR.
[2020-04-01 16:00] VITALS: BP 114/74
[2020-04-01] MEDS: HYDROcodone/APAP 5/325 MG 1 TAB TAB PO PRN ×2 (18:05→21:49)
--- NOTE | 2020-04-01 18:10 | NUR ---
SCHEDULED MEDICATIONS GIVEN, DR STEVENS NOTIFIED OF BS LEVEL, PROVIDED PT WITH APPLE JUICE AND JELLO, WILL AWAIT ORDERS, EDUCATION PROVIDED, PT VERBALIZED UNDERSTANDING, WILL CONTINUE TO MONITOR
--- NOTE | 2020-04-01 18:43 | NUR ---
PT IS EATING DINNER, PT WAS GIVEN APPLE JUICE, NOT SIGNS OF DISTRESS NOTED, WILL CONTINUE TO MONITOR.
[2020-04-01] MEDS: DEXTROSE 50% 50 ML SYR IVP PRN (18:55)
--- NOTE | 2020-04-01 19:08 | NUR ---
RECEIVED ORDER FROM DR. STEVENS FOR D50 NOW AND PRN FOR BS < 60, D50 ADMINISTERED, PT TOLERATED MEDICATION WELL, EDUCATION PROVIDED, PT VERBALIZED UNDERSTANDING, WILL CONTINUE TO MONITOR.
--- NOTE | 2020-04-01 19:25 | NUR ---
ENDORSED PT TO ENGINEER SECOND ASSISTANT NURSE FOR CONTINUITY OF CARE.
--- NOTE | 2020-04-01 19:25 | NUR ---
RECEIVED BEDSIDE REPORT FROM DAY SHIFT NURSE. PT IN BED RESTING WITH HOB ELEVATED. PT AAOX4, AMBULATORY, ABLE TO MAKE NEEDS KNOWN. RESPIRATIONS EVEN AND UNLABORED TO O2 2LPM/NC. ABDOMEN IS SOFT AND NON-TENDER. BOWEL SOUNDS PRESENT ON ALL QUADRANTS. SKIN IS WARM AND DRY. PT WITH 5 INCISION SITES WITH BANDAGES CLEAN AND DRY S/P SURGERY. PT WITH NEW HD ACCESS RIGHT IJ BALJIT CATH IN PLACE. IV ACCESS ON LEFT FA G20 PATENT AND INTACT. IVF INFUSING WELL. PT DENIES ANY PAIN OR DISCOMFORT AT THIS TIME. NO REQUESTS MADE. SAFETY MEASURES IN PLACE. CALL LIGHT WITHIN REACH. WILL CONTINUE TO MONITOR.
[2020-04-01 20:00] VITALS: BP 130/74
--- NOTE | 2020-04-01 20:04 | NUR ---
BLOOD SUGAR 96. NO INSULIN COVERAGE NEEDED. NO COMPLAINTS OF PAIN AT THIS TIME. NO REQUESTS MADE. PT KEPT COMFORTABLE. SAFETY MEASURES IN PLACE. CALL LIGHT WITHIN REACH. WILL CONTINUE TO MONITOR.
--- NOTE | 2020-04-01 21:49 | NUR ---
PT COMPLAINING OF ABDOMINAL PAIN 10/13. PRN PAIN MEDICATION GIVEN ORDERED. WILL CONTINUE TO MONITOR.
[2020-04-02] VITALS: BP 114/55
--- NOTE | 2020-04-02 00:27 | NUR ---
VS STABLE. PT COMPLAINING OF BURNING SENSATION ON IV SITE. IV REMOVED, CANNULA INTACT. NEW IV ACCESS INSERTED ON RIGHT HAND G20, PATENT AND INTACT, IVF INFUSING WELL. PT DENIES ANY PAIN AT THIS TIME. SAFETY MEASURES IN PLACE. CALL LIGHT WITHIN REACH. WILL CONTINUE TO MONITOR.
[2020-04-02] MEDS ORDERED: cefTRIAXone 1,000 MG VIAL ONE (01:12)
--- NOTE | 2020-04-02 02:15 | NUR ---
PT ASLEEP. PT NOT IN DISTRESS. VISIBLE CHEST RISE AND FALL NOTED. PT KEPT COMFORTABLE. SAFETY MEASURES IN PLACE. CALL LIGHT WITHIN REACH. WILL CONTINUE TO MONITOR.
[2020-04-02] MEDS: NACL 0.9% 1,000 ML IV SCH ×3 (03:00→19:40)
[2020-04-02 04:00] VITALS: BP 142/67
[2020-04-02] MEDS: HYDROmorphone 1 MG/ML AMP IVP PRN ×5 (04:40→23:42)
--- NOTE | 2020-04-02 04:40 | NUR ---
PT COMPLAINING OF ABDOMINAL PAIN 01/13. PRN PAIN MEDICATION GIVEN ORDERED. VS STABLE. O2 IN PLACE. PT NOT IN DISTRESS. PROVIDED ICE CHIPS REQUESTED. SAFETY MEASURES IN PLACE. CALL LIGHT WITHIN REACH. WILL CONTINUE TO MONITOR.
[2020-04-02] MEDS: BLOOD GLUCOSE MONITORING 1 DEV DEV FS SCH ×4 (06:46→20:17)
[2020-04-02] MEDS: DEXTROSE 50% 50 ML SYR IVP PRN (06:46)
--- NOTE | 2020-04-02 06:49 | NUR ---
BLOOD SUGAR 58. PRN D50 WATER PUSH GIVEN. PT RESPONSIVE AND ALERT. WILL CONTINUE TO MONITOR.
[2020-04-02 07:59] LABS: BASOPHILS % (AUTO) 0.1 % (0.0-2.0); EOSINOPHILS # (AUTO) 0.1 K/uL (0-0.4); EOSINOPHILS % (AUTO) 0.8 % (0.0-4.0); HEMATOCRIT 26.9 % (36-48); HEMOGLOBIN 8.7 g/dL (12.0-16.0); LYMPHOCYTES # (AUTO) 0.9 K/uL (2.5-16.5); LYMPHOCYTES % (AUTO) 6.9 % (20.5-51.1); MEAN CORPUSCULAR HEMOGLOBIN 29 pg (27-31); MEAN CORPUSCULAR HGB CONC 32 g/dL (33-37); MEAN CORPUSCULAR VOLUME 88.7 fL (80-94); MONOCYTES # (AUTO) 0.9 K/uL (0.8-1.0); MONOCYTES % (AUTO) 7.4 % (1.7-9.3); NEUTROPHILS # (AUTO) 10.7 K/uL (1.8-7.7); NEUTROPHILS % (AUTO) 84.8 % (42.2-75.2); PLATELET COUNT (AUTO) 160 K/uL (140-450); RED BLOOD CELL COUNT(AUTO) 3.04 MIL/uL (4.20-5.40); RED CELL DISTRIBUTION WIDTH 14.7 % (11.6-13.7); WHITE BLOOD COUNT (AUTO) 12.6 K/uL (4.8-10.8)
[2020-04-02 08:00] VITALS: BP 141/67
[2020-04-02 08:12] LABS: ANION GAP 14.9 (8-16); CARBON DIOXIDE 24.2 mmol/L (21-32); POTASSIUM 4.1 mmol/L (3.5-5.1)
[2020-04-02 08:14] LABS: CREATININE 12.9 mg/dL (0.6-1.3)
[2020-04-02] MEDS: lisinopriL 20 MG TAB PO SCH (08:30)
[2020-04-02] MEDS: MIDODRINE 5 MG TAB PO SCH ×3 (08:31→17:00)
[2020-04-02] MEDS: DOCUSATE SODIUM 250 MG GELCAP PO SCH (08:31)
[2020-04-02] MEDS: LACTULOSE 20 GM/30 ML UDC PO SCH (08:32)
--- NOTE | 2020-04-02 08:32 | NUR ---
VS STABLE SCHEDULED MEDS GIVEN. PT STILL WITH POOR APPETITE. ONLY DRANK NEPRO. PT NOT IN DISTRESS. O2 IN PLACE. PT DENIES ANY PAIN OR DISCOMFORT AT THIS TIME. NO REQUESTS MADE. SAFETY MEASURES IN PLACE. CALL LIGHT WITHIN REACH. WILL CONTINUE TO MONITOR.
--- NOTE | 2020-04-02 09:03 | NUR ---
PT VERBALIZED ABDOMINAL PAIN 01/13. PT MOANING AND RESTLESS. PRN PAIN MEDICATION GIVEN ORDERED.
[2020-04-02] MEDS: ALBUTEROL 0.083% 2.5 MG/3 ML NEBU INH SCH (10:00)
[2020-04-02] MEDS: DEXTROSE 50% 50 ML SYR IVP SCH (10:07)
[2020-04-02] MEDS: ONDANSETRON 4 MG/2 ML VIAL IVP PRN ×2 (10:14→19:36)
--- NOTE | 2020-04-02 10:14 | NUR ---
BLOOD SUGAR 57. SCHEDULED D50 WATER IVP GIVEN ORDERED. PT ALSO COMPLAINING OF NAUSEA. PRN ZOFRAN GIVEN ORDERED. NO OTHER REQUESTS MADE. CALL LIGHT WITHIN REACH. WILL CONTINUE TO MONITOR.
--- NOTE | 2020-04-02 10:30 | NUR ---
PT STARTED DIALYSIS. DIALYSIS NURSE AT BEDSIDE.
--- NOTE | 2020-04-02 11:48 | NUR ---
BLOOD SUGAR 105. NO INSULIN COVERAGE NEEDED. WILL CONTINUE TO MONITOR.
[2020-04-02] MEDS: DEXT 5% /NACL 0.9% 1,000 ML IV SCH ×2 (12:04→20:08)
--- NOTE | 2020-04-02 12:33 | NUR ---
ENDORSED TO GUANAKITO RILEY) FOR CONTINUITY OF CARE
--- NOTE | 2020-04-02 12:40 | NUR ---
REPORT GIVEN TO MUSTAPHA MUÑOZ FOR CONTINUITY OF CARE.
--- NOTE | 2020-04-02 12:42 | NUR ---
RECEIVED REPORT FROM GUANAKITO LUCIANO FOR CONTINUOUS OF CARE.
--- NOTE | 2020-04-02 13:00 | NUR ---
PT MEDICATION MIDODRINE NOT GIVEN DUE TO PT BP 130/83. WILL CONTINUE TO MONITOR.
--- NOTE | 2020-04-02 13:16 | NUR ---
DIALYSIS COMPLETED, PER DIALYSIS NURSE 2000 ML FLUID TAKEN OUT PT TOLERATED WELL, WILL CONTINUE TO MONITOR.
--- NOTE | 2020-04-02 13:35 | NUR ---
PT AMBULATED TO RESTROOM AND BACK TO BED, PT TOLERATED WELL, C/O PAIN 9/10 PAIN MEDICATION GIVEN, PT TOLERATED WELL, WILL CONTINUE TO MONITOR.
[2020-04-02 16:00] VITALS: BP 137/92
--- NOTE | 2020-04-02 16:00 | NUR ---
PT MEDICATION MIDODRINE NOT GIVEN DUE TO PT BP 137/92.
--- NOTE | 2020-04-02 16:28 | NUR ---
PT BLOOD SUGAR 72, GAVE PT SOME JUICE AND MILK TO DRINK, PT STATED UNDERSTANDING, WILL CONTINUE TO MONITOR.
--- NOTE | 2020-04-02 19:16 | NUR ---
ENDORSED PT TO SUPERVISOR FURNACE ROOM NURSE DOMENICO LUCIANO FOR CONTINUOUS OF CARE.
--- NOTE | 2020-04-02 19:17 | NUR ---
RECEIVED PT AWAKE LYING ON BED, AAOX4, ABLE TO MAKE NEEDS KNOWN, COMPLAINING OF ABDOMINAL PAIN AND NAUSEA, NO VOMITING NOTED, WILL MEDICATE PRN, ABLE TO TOLERATE ICE CHIPS FOR NOW, IVF INFUSING WELL, WITH RT ZOHRA SMILEY IN PLACE, DRESSING DRY AND INTACT, PLAN OF CARE DISCUSSED, SAFETY MEASURES IN PLACE, CALL LIGHT WITHIN REACH.
[2020-04-02 20:00] VITALS: BP 136/89
--- NOTE | 2020-04-02 20:30 | NUR ---
BLOOD SUGAR CHECKED WITH 81 RESULT, DUE IV ROCEPHIN ADMINISTERED, ALL NEEDS ATTENDED.
[2020-04-02] MEDS: HYDROcodone/APAP 5/325 MG 1 TAB TAB PO PRN (22:03)
--- NOTE | 2020-04-02 23:45 | NUR ---
PT COMPLAINING OF PAIN, MEDICATED PRN WITH DILAUDID IVP, IVF INFUSING WELL, MONITORED CLOSELY.
[2020-04-03] MEDS: DEXT 5% /NACL 0.9% 1,000 ML IV SCH ×2 (02:22→16:51)
[2020-04-03 04:00] VITALS: BP 118/78
[2020-04-03] MEDS: NACL 0.9% 1,000 ML IV SCH (04:00)
[2020-04-03] MEDS: HYDROmorphone 1 MG/ML AMP IVP PRN ×5 (04:08→22:20)
[2020-04-03] MEDS: ONDANSETRON 4 MG/2 ML VIAL IVP PRN ×3 (04:09→21:26)
--- NOTE | 2020-04-03 04:10 | NUR ---
COMPLAINING OF PAIN AND NAUSEA, VITAL SIGNS STABLE, MEDICATED PRN WITH DILAUDID AND ZOFRAN, MONITORED CLOSELY.
--- NOTE | 2020-04-03 06:30 | NUR ---
BLOOD SUGAR CHECKED WITH 70 RESULT, OFFERED JUICE BUT PT STATED "I WILL BE NAUSEATED AND THROW UP IF I DRINK JUICE RIGHT NOW", D50 1 AMP IVP GIVEN, TOLERATED WELL, MONITORED CLOSELY.
[2020-04-03] MEDS: BLOOD GLUCOSE MONITORING 1 DEV DEV FS SCH ×4 (06:33→20:28)
[2020-04-03] MEDS: DEXTROSE 50% 50 ML SYR IVP PRN ×3 (06:33→22:11)
--- NOTE | 2020-04-03 07:25 | NUR ---
PT SLEEPING, NO SIGNS OF DISTRESS, REPORT GIVEN TO MUSTAPHA JAQUEZ FOR CONTINUITY OF CARE.
--- NOTE | 2020-04-03 07:30 | NUR ---
RECEIVED REPORT FROM SEISMOGRAPHER NURSE. PATIENT LYING DOWN IN BED SLEEPING, AROUSABLE BY VOICE. NO DISTRESS NOTED. AAOX4, CALM, COOPERATIVE, SKIN COLOR APPROPRIATE TO ETHNICITY, WARM TO TOUCH. HAS LOWER ABD LYNDSAY IN PLACE S/P PERITONEAL DIALYSIS REMOVAL YESTERDAY 04/02/20. IV SITE INTACT, PATENT, AND INFUSING IVF PER MD ORDERS. RIGHT TUNNELED CATHETER IN PLACE. REVIEWED PLAN OF CARE WITH PATIENT. PATIENT VERBALIZED UNDERSTANDING. SAFETY MEASURES IN PLACE, CALL LIGHT WITHIN REACH. WILL CONTINUE TO MONITOR.
[2020-04-03 08:00] VITALS: BP 148/94
[2020-04-03 08:21] LABS: BASOPHILS % (AUTO) 0.1 % (0.0-2.0); EOSINOPHILS # (AUTO) 0.1 K/uL (0-0.4); EOSINOPHILS % (AUTO) 0.7 % (0.0-4.0); HEMATOCRIT 27.3 % (36-48); HEMOGLOBIN 8.9 g/dL (12.0-16.0); LYMPHOCYTES # (AUTO) 0.9 K/uL (2.5-16.5); LYMPHOCYTES % (AUTO) 7.5 % (20.5-51.1); MEAN CORPUSCULAR HEMOGLOBIN 29 pg (27-31); MEAN CORPUSCULAR HGB CONC 33 g/dL (33-37); MEAN CORPUSCULAR VOLUME 88.4 fL (80-94); MONOCYTES # (AUTO) 0.8 K/uL (0.8-1.0); MONOCYTES % (AUTO) 6.6 % (1.7-9.3); NEUTROPHILS # (AUTO) 9.8 K/uL (1.8-7.7); NEUTROPHILS % (AUTO) 85.1 % (42.2-75.2); PLATELET COUNT (AUTO) 145 K/uL (140-450); RED BLOOD CELL COUNT(AUTO) 3.08 MIL/uL (4.20-5.40); RED CELL DISTRIBUTION WIDTH 14.9 % (11.6-13.7); WHITE BLOOD COUNT (AUTO) 11.5 K/uL (4.8-10.8)
[2020-04-03] MEDS: MIDODRINE 5 MG TAB PO SCH ×3 (09:00→17:00)
[2020-04-03] MEDS: LACTULOSE 20 GM/30 ML UDC PO SCH (09:00)
[2020-04-03] MEDS: lisinopriL 20 MG TAB PO SCH (09:00)
[2020-04-03] MEDS: DOCUSATE SODIUM 250 MG GELCAP PO SCH (09:07)
--- NOTE | 2020-04-03 09:13 | NUR ---
PATIENT COMPLAINS OF ABD PAIN, DILAUDID GIVEN AT THIS TIME. HD NURSE AT BEDSIDE TO PERFORM HD ON PATIENT. WILL CONTINUE TO MONITOR.
[2020-04-03 09:42] LABS: ALBUMIN 1.5 g/dL (3.4-5.0); CARBON DIOXIDE 28.9 mmol/L (21-32); POTASSIUM 3.9 mmol/L (3.5-5.1); TOTAL BILIRUBIN 0.2 mg/dL (0.0-1.0)
[2020-04-03 09:44] LABS: CREATININE 8.7 mg/dL (0.6-1.3)
[2020-04-03] MEDS: ALBUTEROL 0.083% 2.5 MG/3 ML NEBU INH SCH (10:00)
[2020-04-03] MEDS: DEXTROSE 50% 50 ML SYR IVP SCH (10:00)
--- NOTE | 2020-04-03 12:40 | NUR ---
HD COMPLETED. 1.5L OUT. WILL CONTINUE TO MONITOR.
--- NOTE | 2020-04-03 13:06 | NUR ---
PATIENT COMPLAINS OF NAUSEA AND PAIN. ZOFRAN AND DILAUDID GIVEN AT THIS TIME. WILL CONTINUE TO MONITOR.
[2020-04-03 16:00] VITALS: BP 147/83
--- NOTE | 2020-04-03 16:52 | NUR ---
PATIENT BLOOD GLUCOSE CHECKED AT 30, ASYMPTOMATIC. D50 GIVEN AT THIS TIME. WILL CONTINUE TO MONITOR.
--- NOTE | 2020-04-03 18:14 | NUR ---
PATIENT COMPLAINS OF ABD PAIN, DILAUDID GIVEN AT THIS TIME. WILL CONTINUE TO MONITOR.
[2020-04-03 20:00] VITALS: BP 134/95
--- NOTE | 2020-04-03 20:00 | NUR ---
RECEIVED BEDSIDE REPORT FROM DAY RN FOR CONTINUITY OF CARE. PT A/A/OX4, SITTING UP IN BED WATCHING TV. NO COMPLAIN OF ABDOMINAL PAIN, NAUSEA AND VOMITING AT THIS TIME. IVF INFUSING ORDERED.5 ABDOMINAL LAP SITES C/D/I. NO COMPLAIN AT THIS TIME. CALL LIGHT WITHIN REACH. WILL CONTINUE POC.
--- NOTE | 2020-04-03 22:49 | NUR ---
PATIENT BLOOD SUGAR EARLIER WAS 47. GAVE PT ORANGE JUICE FIRST AND BLOOD SUGAR WENT UP TO 64. GAVE PATIENT ANOTHER ORANGE JUICE BUT UNABLE TO FINISH IT DUE TO PT C/O NAUSEA. BLOOD SUGAR STILL IN THE LOW SIDE 72. D50 GIVEN. RE CHECKED THE PT BLOOD SUGAR AFTER 20 MINUTES AND NOW UP TO 98. WILL CONTINUE PT TO MONITOR.
--- NOTE | 2020-04-04 | NUR ---
MEDICATED THE PT FOR PAIN EARLEIR. NO COMPLAIN OF PAIN AT THIS TIME. CALL LIGHT WITHIN REACH.
--- NOTE | 2020-04-04 02:00 | NUR ---
PATIENT ASLEEP AT THIS TIME. VISIBLE CHEST RISE AND FALL NOTED. SAFETY MEASURES IN PLACED.
[2020-04-04 04:00] VITALS: BP 143/84
--- NOTE | 2020-04-04 04:00 | NUR ---
PATIENT VITAL SIGNS STABLE, AFEBRILE, SATING 100% ON RA. NOT IN ANY DISTRESS.NO COMPLAIN OF PAIN. SAFETY MEASURES IN PLACED.
[2020-04-04] MEDS: HYDROmorphone 1 MG/ML AMP IVP PRN ×4 (04:29→23:07)
[2020-04-04] MEDS: DEXT 5% /NACL 0.9% 1,000 ML IV SCH ×2 (04:32→21:16)
--- NOTE | 2020-04-04 06:02 | NUR ---
PT STABLE. NO ACUTE EVENTS THROUGHOUT THE NIGHT. NO SIGN AND SYMPTOMS OF DISTRESS NOTED AT THIS TIME. NO COMPLAIN OF PAIN. ALL NEEDS ATTENDED. CALL LIGHT WITHIN REACH. WILL ENDORSE THE PT TO THE ONCOMING RN FOR CONTINUITY OF CARE.
[2020-04-04 07:25] LABS: BASOPHILS % (AUTO) 0.1 % (0.0-2.0); EOSINOPHILS # (AUTO) 0.2 K/uL (0-0.4); EOSINOPHILS % (AUTO) 0.8 % (0.0-4.0); HEMATOCRIT 25.5 % (36-48); HEMOGLOBIN 8.3 g/dL (12.0-16.0); LYMPHOCYTES # (AUTO) 1.2 K/uL (2.5-16.5); LYMPHOCYTES % (AUTO) 6.1 % (20.5-51.1); MEAN CORPUSCULAR HEMOGLOBIN 29 pg (27-31); MEAN CORPUSCULAR HGB CONC 33 g/dL (33-37); MEAN CORPUSCULAR VOLUME 88.4 fL (80-94); MONOCYTES # (AUTO) 1.2 K/uL (0.8-1.0); MONOCYTES % (AUTO) 6.4 % (1.7-9.3); NEUTROPHILS # (AUTO) 16.6 K/uL (1.8-7.7); NEUTROPHILS % (AUTO) 86.6 % (42.2-75.2); PLATELET COUNT (AUTO) 153 K/uL (140-450); RED BLOOD CELL COUNT(AUTO) 2.89 MIL/uL (4.20-5.40); RED CELL DISTRIBUTION WIDTH 14.6 % (11.6-13.7); WHITE BLOOD COUNT (AUTO) 19.2 K/uL (4.8-10.8)
[2020-04-04 07:30] LABS: ANION GAP 15.7 (8-16); CARBON DIOXIDE 24.2 mmol/L (21-32); POTASSIUM 3.9 mmol/L (3.5-5.1)
[2020-04-04 07:45] LABS: CREATININE 7.1 mg/dL (0.6-1.3)
[2020-04-04] MEDS: HYDROcodone/APAP 5/325 MG 1 TAB TAB PO PRN ×2 (08:32→20:45)
[2020-04-04] MEDS: BLOOD GLUCOSE MONITORING 1 DEV DEV FS SCH ×4 (08:36→20:55)
--- NOTE | 2020-04-04 08:37 | NUR ---
PATIENT'S BS LEVEL 56 WITH NO S/S OF HYPOGLYCEMIA. INFORMED PATIENT TO DRINK APPLE JUICE TO INCREASE THE SUGAR LEVEL, HOWEVER, PATIENT COMPLAINT OF THE ABD PAIN AND NOT ABLE TO DRINK. INFORMED PATIENT THAT IT WILL TAKE SOME TIME TO MAKE THE PAIN MED WORKING. INFORMED DR. EVANS REGARDING THE CONDITION. WILL RECHECK THE BS LEVEL AFTER PATIENT DRINK SOME JUICE.
[2020-04-04] MEDS: LACTULOSE 20 GM/30 ML UDC PO SCH (08:40)
[2020-04-04] MEDS: lisinopriL 20 MG TAB PO SCH (08:40)
[2020-04-04] MEDS: DOCUSATE SODIUM 250 MG GELCAP PO SCH (08:40)
--- NOTE | 2020-04-04 08:40 | NUR ---
SCHEDULED MEDICATION GIVEN. EDUCATION PROVIDED. NORCO GIVEN AT 0832 FOR ABD AND LOWER BACK PAIN 10/13. SAFETY MEASURES IN PLACE, WILL CONTINUE TO MONITOR.
[2020-04-04] MEDS: MIDODRINE 5 MG TAB PO SCH ×2 (08:51→13:00)
[2020-04-04] MEDS: ALBUTEROL 0.083% 2.5 MG/3 ML NEBU INH SCH (10:00)
--- NOTE | 2020-04-04 11:03 | NUR ---
BLOOD GLUCOSE LEVEL 67. ENCOURAGE PATIENT TO TAKE APPLE JUICE TO INCREASE BS LEVEL. DR. HARDING AT BEDSIDE TALKING WITH THE PATIENT DISCUSSING REGARDING THE AV FISTULA. WILL CONTINUE TO MONITOR THE PAIN AND BS LEVEL.
[2020-04-04] MEDS: CALCIUM ACETATE 667 MG TAB PO SCH ×2 (12:39→17:08)
--- NOTE | 2020-04-04 12:41 | NUR ---
SCHEDULED MEDICATION GIVEN. EDUCATION PROVIDED. PATIENT SITTING IN BED AND ENCOURAGED PATIENT TO EAT AND DRINK. VERBALIZED UNDERSTANDING. WILL CONTINUE TO FOLLOW UP.
--- NOTE | 2020-04-04 14:22 | NUR ---
DILAUDID GIVEN VIA IVP FOR ABD AND LOWER BACK PAIN. 01/13. EDUCATION PROVIDED REGARDING THE SIDE EFFECT OF MEDICATION. INSTRUCTED THE PATIENT REGARDING NON PHARMACOLOGICAL PAIN MANAGEMENT METHODS AND RELAXATION TECHNIQUE. WILL CONTINUE TO MONITOR.
--- NOTE | 2020-04-04 15:00 | NUR ---
04/04/20 RD FOLLOW UP COMPLETED PLEASE REFER TO NUTRITION ASSESSMENT UNDER CARE ACTIVITY FOR ESTIMATED NUTRITIONAL NEEDS. 1. CONTINUE RENAL DIET WITH NEPRO BID 2. ENCOURAGED PATIENT TO INCREASE PO INTAKE 3. RD TO FOLLOW-UP 2-3 DAYS, HIGH RISK BASHIR DUCKWORTH, RD
--- NOTE | 2020-04-04 15:21 | NUR ---
UPDATED PATIENT'S CONDITION TO DR. EVANS. NO NEW ORDER OBTAINED. WILL CONTINUE WITH CURRENT PLAN OF CARE.
[2020-04-04 16:00] VITALS: BP 146/85
[2020-04-04] MEDS: DEXTROSE 50% 50 ML SYR IVP PRN ×2 (17:00→20:28)
--- NOTE | 2020-04-04 17:00 | NUR ---
PATIENT'S BS LEVEL ONLY 30, D50 GIVEN. MD REPORTED. PATIENT HAS NO SYMPTOMS. COMPLAINT OF LOWER BACK PAIN AND ABDOMINAL PAIN. WILL ADMINISTER PAIN MED WHEN IT'S DUE FOR NEXT DOSE. ENCOURAGED PATIENT TO DRINK APPLE JUICE. WILL CONTINUE TO FOLLOW UP.
[2020-04-04] MEDS: ONDANSETRON 4 MG/2 ML VIAL IVP PRN (18:42)
--- NOTE | 2020-04-04 18:42 | NUR ---
DILAUDID GIVEN FOR ABD AND LOWER BACK PAIN, 02/12. ZOFRAN GIVEN FOR NAUSEA. EDUCATION PROVIDED. WILL CONTINUE TO MONITOR.
--- NOTE | 2020-04-04 19:30 | NUR ---
RECEIVED REPORT AT BEDSIDE FOR CONTINUITY OF CARE BY RN DAYSHIFT NURSE, PT IN STABLE CONDITION.
--- NOTE | 2020-04-04 19:32 | NUR ---
ENDORSED PATIENT TO SWEEPER DRIVER RN FOR CONTINUITY OF CARE, PATIENT IN STABLE CONDITION.
[2020-04-04 20:00] VITALS: BP 158/93
--- NOTE | 2020-04-04 20:30 | NUR ---
PT SITTING UP IN BED AOX4, SHE HAS A RIGHT WRIST 22 GUAGE INTACT AND RUNNING D5N/S AT 70MLS/HR. SHE HAS 5 SURGICAL WOUND SITE WITH BANDAGES NO DRAINAGE NOTED, OTHERWISE SKIN INTACT. SHE IS ALSO ON 02 VIA 2 LITERS. V/S FOLLOWS: T 96.6 P 116 R 20 B/P 158/97. WILL RETAKE B/P LATE ,PT SAYS SHE HAS MODERATE ABDOMINAL PAIN . F/S IS 35. PT WAS GIVEN ORDERED D5O , PT SAID SHE DIDN'T NOT WANT TO EAT OR DRINK ANYTHING. WILL RETAKE FINGERSTICK LATER. ALL UNIVERSAL FALLS PRECAUTIONS IN PLACE.
--- NOTE | 2020-04-04 21:00 | NUR ---
PT WAS GIVEN NORCO FOR MODERATE ABDOMINAL PAIN RETAKE OF FINGERSTICK IS 119, WILL CONTINUE TO MONITOR FOR PAIN AND BLOOD SUGAR.
--- NOTE | 2020-04-04 22:30 | NUR ---
BUNNY CALLED MADE AWARE OF HD FOR TOMMORROW.
--- NOTE | 2020-04-04 23:10 | NUR ---
PT C/OF OF SEVERE PAIN IN ABDOMEN, SHE WAS GIVEN REQUESTED DILAUDID IVP WELL ZOFRAN IV PUSH FOR C/O OF NAUSEA.
--- NOTE | 2020-04-04 23:30 | NUR ---
FINGERSTICK CHECK DONE FINGERSTICK IS 37, D5DW GIVEN IVP TO INCREASE BLOOD SUGAR, PT REQUESTED AND WAS GIVEN A MILK. V/S FOLLOWS: T 97 P 114 R 18 B/P 158/83 02 100% WITH 2 LITERS VIA N/C. WILL RECHECK FINGERSTICK LATER.
--- NOTE | 2020-04-05 01:00 | NUR ---
FINGERSTICK IS 87
[2020-04-05 04:00] VITALS: BP 148/91
[2020-04-05] MEDS: HYDROmorphone 1 MG/ML AMP IVP PRN ×4 (04:00→21:18)
[2020-04-05] MEDS: ONDANSETRON 4 MG/2 ML VIAL IVP PRN ×4 (04:00→22:41)
--- NOTE | 2020-04-05 04:00 | NUR ---
PT FINGERSTICK AT 4 AM WAS 50 D 5W GIVEN PT ALSO C/O OF SEVERE PAIN IN ABDOMEN AND WAS GIVEN REQUESTED DILAUDID AND ZOFRAN FOR DRY HEAVES. WILL CONTINUE TO MONITOR FOR PAIN AND BLOOD SUGAR.
[2020-04-05] MEDS: DEXTROSE 50% 50 ML SYR IVP PRN ×2 (04:15→17:07)
[2020-04-05 06:36] LABS: ANION GAP 15.1 (8-16); CARBON DIOXIDE 23.8 mmol/L (21-32); POTASSIUM 3.9 mmol/L (3.5-5.1)
--- NOTE | 2020-04-05 06:45 | NUR ---
FINGERSTICK WAS 73, APPLE JUICE GIVEN. PT AWAKE BUT FEELING TEARY AFRAID AND ANXIOUS, WILL ENDORSE TO DAYS FOR PRN FOR ANXIETY.
[2020-04-05 06:47] LABS: CREATININE 8.9 mg/dL (0.6-1.3)
--- NOTE | 2020-04-05 07:00 | NUR ---
RECEIVED CRITICAL LAB FOR CREATININE 5.9, PT RECEIVING HD TODAY.
[2020-04-05] MEDS: BLOOD GLUCOSE MONITORING 1 DEV DEV FS SCH ×4 (07:01→21:23)
--- NOTE | 2020-04-05 07:40 | NUR ---
RECEIVED REPORT FROM NIGHT NURSE FOR CONTINUITY OF CARE, PT IS STABLE, PT HAS RIGHT WRIST 22G INFUSING D5NS AT 70 ML/H,. PT HAS 5 ABD BANDAGE FROM LAP SURGERY ON 04/01, PT ON ROOM AIR, PT HAS RIGHT IJ BALJIT CATH. SAFETY MEASURES IN PLACE, WILL CONTINUE TO MONITOR.
[2020-04-05 08:00] VITALS: BP 161/107
[2020-04-05] MEDS: CALCIUM ACETATE 667 MG TAB PO SCH ×3 (08:00→18:35)
[2020-04-05 08:08] LABS: HEPATITIS A ANTIBODY IGM Negative (Negative); HEPATITIS B CORE AB TOTAL Negative (Negative); HEPATITIS B SURFACE ANTIGEN Negative (Negative)
--- NOTE | 2020-04-05 08:08 | NUR ---
ADMINISTERED DILAUDID FOR ABD PAIN 10/10, CONSTANT,SHARP, ACHE PAIN IN ABD. MEDICATION EDUCATION PROVIDED, PT VERBALIZED UNDERSTANDING, PT TOLERATED WELL, PT IS STABLE, WILL CONTINUE TO MONITOR.
[2020-04-05] MEDS: LACTULOSE 20 GM/30 ML UDC PO SCH (10:27)
[2020-04-05] MEDS: DOCUSATE SODIUM 250 MG GELCAP PO SCH (10:27)
[2020-04-05] MEDS: EPOETIN ALFA 10,000 UNITS/ML VIAL IV SCH (10:29)
[2020-04-05] MEDS: lisinopriL 20 MG TAB PO SCH (10:30)
--- NOTE | 2020-04-05 10:42 | NUR ---
ADMINISTERED SCHEDULED MEDICATION, ADMINISTERED ZOFRAN FOR NAUSEA, MEDICATION EDUCATION PROVIDED, PT VERBALIZED UNDERSTANDING, PT TOLERATED WELL, PT IS STABLE, WILL CONTINUE TO MONITOR.
--- NOTE | 2020-04-05 10:44 | NUR ---
SOCIAL WORK NOTE: Patient's Orientation Person Situation Place Time Information Provided By PATIENT Comments SW WAS UNABLE TO MEET PATIENT AT BEDSIDE DUE TO MEDICAL CONDITION. SW COMPLETED ASSESSMENT WITH PATIENT TELEPHONICALLY. Route Service Representative, Realtionship and Phone Number NADIR BAH [phone] Healthcare Power of Torch Shearer No Does Patient Have a POLST No Identifying Problems No Social Work Triggers Is A Social Work Consult Needed No Mandate Report Filed No Explanation Of Identifying Problems PATIENT IS A 25-YEAR-OLD MALE ADMITTED FOR ABDOMINAL PAIN. PATIENT HAS PMHX OF HYPERTENSION AND RENAL DISEASE. PATIENT REPORTED NO HISTORY OF SUBSTANCE ABUSE. PATIENT STATED SHE HAS DIAGNOSES OF DEPRESSION AND ANXIETY BUT RECEIVES THERAPY FROM [facility] AND HER THERAPIST IS ZONIA SHERIDAN. PATIENT REFUSED MENTAL HEALTH RESOURCES. Admitted From Home Pre-Admission Level Of Functioning Status Independent/Ambulatory Prior Resources/Services Used In Last 12 Months No Prior Resources Used Prior DME No Prior DME Used Dialysis Hemodialysis Name And Phone Number of Dialysis Facility [facility] ESRD Outpatient Time UNKNOWN Dialysis Comments PATIENT STATED HER CHAIRTIME IS UNKNOWN AT THIS TIME. Living Situation Lives With Family House Other Living Situation/Comment PATIENT STATED LIVING WITH MOTHER AND SISTER. Patient Had Caregiver No Home Support No Caregiver Issues Financial Issues No Known Financial Issue Referral To The Financial Counselor Needed No Factors/Needs No D/C Needs Identified Explanation And Or Other Factors Affecting/Possible DC Needs PATIENT STATED SHE WOULD COORDINATE TRANSPORTATION AT DISCHARGE. Pt/Rep Participated In Discharge Plan Yes Patient/Family Agress With Discharge Plan Yes Discharge Plan Comments TENTATIVE DISCHARGE PLAN IS FOR PATIENT TO RETURN HOME. DC Plan Status Initiated
[2020-04-05] MEDS: DEXT 5% /NACL 0.9% 1,000 ML IV SCH ×2 (11:34→17:07)
[2020-04-05] MEDS: HYDROcodone/APAP 5/325 MG 1 TAB TAB PO PRN (11:56)
--- NOTE | 2020-04-05 11:57 | NUR ---
ADMINISTERED NORCO FOR PAIN 6/10 IN ABD, MEDICATION EDUCATION PROVIDED, PT VERBALIZED UNDERSTANDING, PT TOLERATED WELL, PT IS STABLE, DIALYSIS STARTING, WILL CONTINUE TO MONITOR.
[2020-04-05 14:32] LABS: HEPATITIS B SURFACE ANTIBODY Non Reactive (.)
[2020-04-05 16:00] VITALS: BP 159/81
[2020-04-05 16:01] LABS: HEMATOCRIT 28.7 % (36-48); HEMOGLOBIN 9.1 g/dL (12.0-16.0); MEAN CORPUSCULAR HEMOGLOBIN 28 pg (27-31); MEAN CORPUSCULAR HGB CONC 32 g/dL (33-37); PLATELET COUNT (AUTO) 289 K/uL (140-450); RED BLOOD CELL COUNT(AUTO) 3.26 MIL/uL (4.20-5.40); RED CELL DISTRIBUTION WIDTH 14.3 % (11.6-13.7)
[2020-04-05 16:03] LABS: WHITE BLOOD COUNT (AUTO) 26.9 K/uL (4.8-10.8)
[2020-04-05] MEDS: ALBUTEROL 0.083% 2.5 MG/3 ML NEBU INH SCH (16:10)
[2020-04-05 16:21] LABS: LYMPHOCYTES % (MANUAL) 4 % (20-46); MONOCYTES % (MANUAL) 5 % (5-12)
[2020-04-05 16:24] LABS: ALBUMIN 1.5 g/dL (3.4-5.0); ANION GAP 13.3 (8-16); CARBON DIOXIDE 25.7 mmol/L (21-32); TOTAL BILIRUBIN 0.2 mg/dL (0.0-1.0)
[2020-04-05 16:25] LABS: CREATININE 5.7 mg/dL (0.6-1.3)
--- NOTE | 2020-04-05 16:43 | NUR ---
ADMINISTERED DILAUDID FOR SEVERE ABD PAIN 01/13, MEDICATION EDUCATION PROVIDED, PT VERBALIZED UNDERSTANDING, PT TOLERATED WELL, PT IS STABLE, WILL CONTINUE TO MONITOR.
[2020-04-05] MEDS: QUEtiapine FUMARATE 25 MG TAB PO SCH (16:51)
--- NOTE | 2020-04-05 16:58 | NUR ---
ADMINISTERED SCHEDULED MEDICATION, ZOFRAN FOR NAUSEA, MEDICATION EDUCATION PROVIDED, PT TOLERATED WELL, PT IS STABLE, WILL CONTINUE TO MONITOR.
--- NOTE | 2020-04-05 17:18 | NUR ---
ADMINISTERED DEXTROSE 50% PT HAD BLOOD GLUCOSE OF 55 MEDICATION, MEDICATION EDUCATION PROVIDED, PT TOLERATED WELL, PT IS STABLE, WILL CONTINUE TO MONITOR.
--- NOTE | 2020-04-05 18:37 | NUR ---
ADMINISTERED SCHEDULED MEDICATION, MEDICATION EDUCATION PROVIDED, PT TOLERATED WELL, PT IS STABLE, WILL CONTINUE TO MONITOR.
--- NOTE | 2020-04-05 19:30 | NUR ---
ENDORSE PT TO NIGHT NURSE FOR CONTINUITY OF CARE, PT IS STABLE.
--- NOTE | 2020-04-05 19:31 | NUR ---
RECD. RESTING IN BED, AWAKE, A/OX4. RESPIRATION EVEN AND UNLABORED. 02 SAT - 94% ON ROOM AIR. IV OF D5NS AT 70 ML/HR INFUSING, LEFT FOREARM G20, RIGHT IJ BALJIT CATH, PATENT AND INTACT. AMBULATORY TO THE BATHROOM. NO APPETITE TO EAT, STATED "TAKING JUICE AND FOOD MAKES ME VOMIT". REMINDED THAT SHE IS DIABETIC AND NEEDS TO EAT TO MAINTAIN HER BLOOD SUGAR. DENIES PAIN 0/10.
[2020-04-05 20:20] VITALS: BP 134/81
--- NOTE | 2020-04-05 21:18 | NUR ---
PT COMPLAIN ABD PAIN 10/10. MEDICATED WITH PRN DILAUDID PER ORDERS. PT S/P REMOVAL OF PD CATH. 5 DRESSINGS NOTED IN MID ABD DRESSINGS WERE CHANGED TODAY. DRESSINGS ARE C/D/I. NO NOTED DRAINAGE. ABD IS SOFT. PER PT IS PASSING GAS. BOWEL SOUNDS ARE ACTIVE X4. SAFETY MEASURES ARE IN PLACE. WILL CONTINUE TO MONITOR.
--- NOTE | 2020-04-05 21:23 | NUR ---
BS CHECKED - 61. REFUSED ORANGE JUICE. TAKE APPLE JUICE BUT ONLY HALF OF THE CUP, STATED "I WILL VOMIT IF I TAKE ALL OF IT. MAKES MY STOMACH UPSET.".
--- NOTE | 2020-04-05 22:41 | NUR ---
NAUSEATED, MEDICATED WITH ZOFRAN PER MD ORDER.
[2020-04-06] MEDS: DEXTROSE 50% 50 ML SYR IVP PRN ×3 (00:15→21:39)
--- NOTE | 2020-04-06 00:15 | NUR ---
BLOOD SUGAR 62. NO S/S OF HYPOGLYCEMIA. PT REFUSING TO EAT OR DRINK ANYTHING D/T NAUSEA. ADMINISTERED PRN DEXTROSE IVP. WILL RECHECK BG SAFETY MEASURES ARE IN PLACE. CALL LIGHT IS WITHIN REACH.
[2020-04-06] MEDS: HYDROcodone/APAP 5/325 MG 1 TAB TAB PO PRN ×2 (00:17→08:52)
[2020-04-06] MEDS ORDERED: VANCOMYCIN PER PHARMACY MC PRN (01:40)
[2020-04-06] MEDS: HYDROmorphone 1 MG/ML AMP IVP PRN ×5 (02:27→21:36)
[2020-04-06] MEDS ORDERED: VANCOMYCIN HCL 1.25 GM in DEXTROSE 5% 250 ML IV SCH (02:35)
--- NOTE | 2020-04-06 03:00 | NUR ---
PT AWAKE RESTING COMFORTABLY IN BED. ENCOURAGE TO EAT OR DRINK SOMETHING PT REFUSE STATES NO APPETITE D/T PAIN AND NAUSEA. WILL CONTINUE TO MONITOR.
[2020-04-06] MEDS ORDERED: VANCOMYCIN 1,000 MG VIAL ONE (03:36)
[2020-04-06] MEDS ORDERED: VANCOMYCIN 500 MG VIAL ONE (03:36)
[2020-04-06 04:20] VITALS: BP 142/90
[2020-04-06] MEDS: ONDANSETRON 4 MG/2 ML VIAL IVP PRN ×3 (05:15→21:30)
--- NOTE | 2020-04-06 05:15 | NUR ---
ADMINISTERED PRN ZOFRAN FOR NAUSEA. PT AMBULATED TO BATHROOM. LARGE BM. STATES FEELS SOME ABD PRESSURE RELIEF BUT PAIN STILL THERE. DRESSINGS REMAIN C/D/I. ALL NEEDS MET. CALL LIGHT IS WITHIN REACH.
[2020-04-06] MEDS: BLOOD GLUCOSE MONITORING 1 DEV DEV FS SCH ×4 (05:18→21:41)
[2020-04-06 06:24] LABS: HEMATOCRIT 25.1 % (36-48); HEMOGLOBIN 8.1 g/dL (12.0-16.0); MEAN CORPUSCULAR HEMOGLOBIN 28 pg (27-31); MEAN CORPUSCULAR HGB CONC 32 g/dL (33-37); MEAN CORPUSCULAR VOLUME 87.9 fL (80-94); PLATELET COUNT (AUTO) 257 K/uL (140-450); RED BLOOD CELL COUNT(AUTO) 2.85 MIL/uL (4.20-5.40); RED CELL DISTRIBUTION WIDTH 14.4 % (11.6-13.7); WHITE BLOOD COUNT (AUTO) 17.6 K/uL (4.8-10.8)
[2020-04-06 06:46] LABS: ALBUMIN 1.3 g/dL (3.4-5.0); ANION GAP 15.5 (8-16); CARBON DIOXIDE 24.3 mmol/L (21-32); POTASSIUM 3.8 mmol/L (3.5-5.1); TOTAL BILIRUBIN 0.2 mg/dL (0.0-1.0)
--- NOTE | 2020-04-06 06:47 | NUR ---
ADMINISTERED DILAUDID FOR ABD PAIN. ALL NEEDS MET. CALL LIGHT IS WITHIN REACH.
[2020-04-06 06:54] LABS: CREATININE 7.3 mg/dL (0.6-1.3)
--- NOTE | 2020-04-06 07:15 | NUR ---
PAGED DR. YANEZ FOR CREA 7.3. NO CHANGE IN ORDERS. PT RECEIVED HD YESTERDAY. JUST CONTINUE TO MONITOR WAITING ON BLOOD CX.
--- NOTE | 2020-04-06 07:30 | NUR ---
RECEIVED PT FROM SENIOR UX DEVELOPER NURSE, PT IS AWAKE AND SITTING IN BED, NC @ 4LPM, IV NOTED TO R WRIST D5NS @ 70 ML/HR, CONTINENT, SAFETY AND FALL PRECAUTIONS IN PLACE, WILL CONTINUE TO MONITOR.
[2020-04-06 07:39] LABS: LYMPHOCYTES % (MANUAL) 8 % (20-46)
[2020-04-06 07:40] LABS: MONOCYTES % (MANUAL) 6 % (5-12)
[2020-04-06] MEDS: LACTULOSE 20 GM/30 ML UDC PO SCH (08:45)
[2020-04-06] MEDS: DOCUSATE SODIUM 250 MG GELCAP PO SCH (08:46)
[2020-04-06] MEDS: CALCIUM ACETATE 667 MG TAB PO SCH ×3 (08:47→16:37)
[2020-04-06] MEDS: lisinopriL 20 MG TAB PO SCH (08:51)
--- NOTE | 2020-04-06 08:57 | NUR ---
SCHEDULED MEDICATIONS ADMINISTERED W/IN PARAMETERS, HR 108, BP 145/99, RR 20 02, 93, PAIN 6 OUT OF 10, PT IS REPORTING SOME FEELINGS OF NAUSEA, ZOFRAN IS NOT DUE YET, WILL CONTINUE TO MONITOR.
--- NOTE | 2020-04-06 09:03 | NUR ---
ICE CHIPS PROVIDED, ENCOURAGED PT TO EAT SMALL BITES OF FOOD TOLERATED.
--- NOTE | 2020-04-06 10:30 | NUR ---
PT WAS ASSISTED AND CLEANED UP AND PT MADE A BOWEL MOVEMENT.
--- NOTE | 2020-04-06 10:54 | NUR ---
DR. PIERCE MADE ROUNDS AND CAME TO PT'S ROOM, SAID THAT PT WILL BE TRANSFUSED WITH [address] BLOOD CELLS YAJAIRA WHILE ON DIALYSIS.
--- NOTE | 2020-04-06 11:50 | NUR ---
SCHEDULED MEDICATIONS, PAIN MEDICATION ADMINISTERED W/IN PARAMETERS HR 110, BP 145/92 RR 18, 02 96%, PAIN 810 WILL CONTINUE TO MONITOR
[2020-04-06] MEDS: DEXT 5% /NACL 0.9% 1,000 ML IV SCH (12:05)
[2020-04-06 16:00] VITALS: BP 154/83
--- NOTE | 2020-04-06 16:47 | NUR ---
PT WAS GIVEN PAIN MEDICATION FOR C/O PAIN RATE OF 8/10, PARAMETER CHECKED, ANTI-NAUSEA MED AND D50 FOR BLOOD GLUCOSE OF 51, WILL MONITOR PT.
[2020-04-06] MEDS: QUEtiapine FUMARATE 25 MG TAB PO SCH (17:42)
--- NOTE | 2020-04-06 17:44 | NUR ---
SCHEDULED MEDICATION ADMINISTERED NOW, EDUCATION PROVIDED, PT VERBALIZED UNDERSTANDING, WILL CONTINUE TO MONITOR
--- NOTE | 2020-04-06 17:46 | NUR ---
GLUCOSE RECHECKED, SUGAR LEVEL IS NOW 108, WILL CONTINUE TO MONITOR
--- NOTE | 2020-04-06 19:35 | NUR ---
ENDORSED PT TO CIRCULAR TANK COOPER NURSE FOR CONTINUITY OF CARE.
--- NOTE | 2020-04-06 19:36 | NUR ---
RECD. RESTING IN BED, A/A/OX4. NO SOB NOTED. WITH RIGHT IJ TUNNEL CATH FOR DIALYSIS. IV LINE, LEFT WRIST G22. D5 NS AT 70 ML/HR INFUSING. PREVIOUS SITE OF OLD PERITONEAL ACCESS WOUND WITH LYNDSAY DRY, INTACT. POC DISCUSSED. PATIENT UNDERSTAND. FALL RISK, SAFETY MEASURES ENFORCED. PAIN IN THE ABDOMEN 06/15, WILL MEDICATE PER MD ORDER. WILL CONTINUE TO MONITOR.
--- NOTE | 2020-04-06 21:39 | NUR ---
ACCU CHECK - 44 - WILL GIVE D 50/50 ORDERED . WILL CONT . TO MONITOR .
--- NOTE | 2020-04-06 22:00 | NUR ---
IV SITE INFILTRATED - IV CANNULLA REMOVED - INTACT AND COMPLETE , MIN . BLEEDING . WILL RE INSERT NEW IV ACCESS .
[2020-04-07] VITALS: BP 139/91
--- NOTE | 2020-04-07 01:00 | NUR ---
ACCU CHECK - 46 - WILL REFER TO INSIGHTS STRATEGIST
[2020-04-07] MEDS ORDERED: DEXTROSE 10% 1,000 ML IV ONE (01:11)
[2020-04-07] MEDS: DEXTROSE 10% 1,000 ML IV SCH (01:18)
[2020-04-07] MEDS: HYDROmorphone 1 MG/ML AMP IVP PRN ×5 (01:54→21:39)
--- NOTE | 2020-04-07 04:00 | NUR ---
MADE ROUNDS , NO S/SX OF ACUTE DISTRESS NOTED .
[2020-04-07] MEDS: ONDANSETRON 4 MG/2 ML VIAL IVP PRN ×3 (04:03→20:38)
--- NOTE | 2020-04-07 06:00 | NUR ---
RESTING ON BED . SHE SAID BEARABLE PAIN
[2020-04-07] MEDS: DEXT 5% /NACL 0.9% 1,000 ML IV SCH (06:28)
[2020-04-07] MEDS: BLOOD GLUCOSE MONITORING 1 DEV DEV FS SCH ×4 (07:02→20:46)
--- NOTE | 2020-04-07 07:20 | NUR ---
RECEIVED PATIENT FROM NIGHT NURSE. PATIENT IN BED AWAKE AND ALERT. RESP EVEN AND UNLABORED ON ROOM AIR. C/O SEVERE PAIN TO ABD. WILL MEDICATE APPROPRIATELY. RH 22G INFUSING D10%. RIJ FOR DIALYSIS NOTED INTACT. PLAN OF CARE DISCUSSED WITH PATIENT. PATIENT VERBALIZED UNDERSTANDING. SAFETY MEASURES IN PLACE. CALL LIGHT WITHIN REACH. WILL CONTINUE TO MONITOR.
--- NOTE | 2020-04-07 07:30 | NUR ---
ENDORSED TO AM SHIFT - P-T - STABLE - W/ LATEST BLOOD SUGAR 79 . FOR HD TODAY AND FOR BT TODAY - W/ CONSENT / S SIGNED =- ENDORSED .
--- NOTE | 2020-04-07 07:50 | NUR ---
DILAUDID GIVEN FOR SEVERE PAIN. WILL ASSESS FOR EFFECTIVENESS.
[2020-04-07 08:00] VITALS: BP 148/101
[2020-04-07] MEDS: lisinopriL 20 MG TAB PO SCH (09:00)
[2020-04-07] MEDS: DOCUSATE SODIUM 250 MG GELCAP PO SCH ×2 (09:00→09:37)
[2020-04-07] MEDS: LACTULOSE 20 GM/30 ML UDC PO SCH (09:37)
[2020-04-07] MEDS: CALCIUM ACETATE 667 MG TAB PO SCH ×3 (09:38→16:51)
--- NOTE | 2020-04-07 09:38 | NUR ---
MORNING ROUTINE MEDICATIONS GIVEN. PATIENT TOLERATED WELL. ZESTRIL HELD AND PROCRIT WILL BE GIVEN AFTER HD DONE, PER HD NURSE. PATIENT AWAKE AND ALERT. RESP EVEN AND UNLABORED ON ROOM AIR. RH22G INTACT AND PATENT. RIJ FOR HD INTACT. PATIENT ABLE TO MAKE NEEDS KNOWN. CALL LIGHT WITHIN REACH. WILL CONTINUE TO MONITOR. Addendum: 04/07/20 at 1035 by Lou Avery RN MORENA PETERSON D/T PATIENT C/O DIARRHEA EPISODES.
--- NOTE | 2020-04-07 11:30 | NUR ---
HD IN PROGRESS. FIRST UNIT PACKED CELLS GIVEN TO HD NURSE. DR PIERCE AT BEDSIDE. NO NOTED DISTRESS AT THIS TIME. RESP EVEN AND UNLABORED ON ROOM AIR. CALL LIGHT WITHIN REACH. WILL CONTINUE TO MONITOR.
--- NOTE | 2020-04-07 11:45 | NUR ---
SECOND UNIT PACKED CELL GIVEN TO INDUSTRIAL PLANT CUSTODIAN. PATIENT IN STABLE CONDITION.
[2020-04-07] MEDS: EPOETIN ALFA 10,000 UNITS/ML VIAL IV SCH (12:35)
--- NOTE | 2020-04-07 12:40 | NUR ---
HD COMPLETED. PROCRIT GIVEN PER HD NURSE. PATIENT IN BED AWAKE AND ALERT. NO NOTED DISTRESS A THIS TIME. RESP EVEN AND UNLABORED ON ROOM AIR. DILAUDID GIVEN PER PAIN TO ABD. CALL LIGHT WITHIN REACH. WILL CONTINUE TO MONITOR.
--- NOTE | 2020-04-07 13:25 | NUR ---
STOOL COLLECTED FOR CDIFF. SENT TO LAB
--- NOTE | 2020-04-07 13:46 | NUR ---
04/07/20 RD FOLLOW UP COMPLETED PLEASE REFER TO NUTRITION ASSESSMENT UNDER CARE ACTIVITY FOR ESTIMATED NUTRITIONAL NEEDS. 1. CONTINUE RENAL DIET WITH NEPRO BID 2. ENCOURAGED PATIENT TO INCREASE PO INTAKE LIKE FLUIDS AND SNACKS 3. RD TO FOLLOW-UP 2-3 DAYS, HIGH RISK BASHIR DUCKWORTH, RD
--- NOTE | 2020-04-07 13:50 | NUR ---
ZOFRAN GIVEN D/T C/O NAUSEA. NO EPISODES OF VOMITING. BLOOD GLUCOSE 70, NO COVERAGE NEEDED. PATIENT AWAKE AND ALERT. RESP EVEN AND UNLABORED ON ROOM AIR. CALL LIGHT WITHIN REACH. WILL CONTINUE TO MONITOR.
--- NOTE | 2020-04-07 15:35 | NUR ---
PATIENT IN BED SLEEPING, CHEST NOTED RISING. NO ACUTE S/S DISTRESS AT THIS TIME. RESP EVEN AND UNLABORED ON ROOM AIR. CALL LIGHT WITHIN REACH. WILL CONTINUE TO MONITOR.
[2020-04-07 16:00] VITALS: BP 158/76
[2020-04-07] MEDS: QUEtiapine FUMARATE 25 MG TAB PO SCH (16:51)
[2020-04-07] MEDS: DEXTROSE 50% 50 ML SYR IVP PRN ×2 (17:04→20:54)
--- NOTE | 2020-04-07 17:05 | NUR ---
BLOOD GLUCOSE 28. PATIENT IN BED AWAKE AND ALERT. DENIED OF ANY DISTRESS AT THIS TIME. DEXTROSE 50% PRN GIVEN IVP. ORANGE JUICE GIVEN. PATIENT STATED SHE DIDN'T WANT TO EAT ANYTHING BECAUSE SHE DOESN'T FEEL WELL. JUICE ENCOURAGED. PATIENT TOLERATED FLUIDS WELL. WILL REASSESS TO F/U.
--- NOTE | 2020-04-07 17:35 | NUR ---
BLOOD GLUCOSE 73. PATIENT IN BED AWAKE AND ALERT. NO NOTED ACUTE S/S DISTRESS. FLUIDS AND JUICE GIVEN. PATIENT TOLERATED WELL. ENCOURAGED TO EAT SOLID FOODS TOLERATED. PATIENT VERBALIZED UNDERSTANDING. WILL CONTINUE TO MONITOR.
--- NOTE | 2020-04-07 19:25 | NUR ---
ENDORSED PATIENT TO NIGHT NURSE. PATIENT IN STABLE CONDITION.
--- NOTE | 2020-04-07 19:26 | NUR ---
RECEIVED ENDORSEMENT FROM AM SHIFT RN. AOX4, ON ROOM AIR, NO SOB, IVF INFUSING, W/ ABDOMINAL DRESSING IN PLACE, W/ RT I.J. HEMODIALYSIS ACCESS INTACT. SAFETY MEASURES IN PLACE, PLAN OF CARE DISCUSSED, CALL LIGHT WITHIN REACH.
--- NOTE | 2020-04-07 22:44 | NUR ---
Re-checked blood sugar, it went up to 67. Pt is using her cellphone, no c/o pain, no sob, watching tv, gave orange juice, vasu crackers, jell-o, advice pt to eat, verbalized understanding. will monitor, call light within reach.
[2020-04-08] MEDS: DEXTROSE 10% 1,000 ML IV SCH (01:10)
--- NOTE | 2020-04-08 01:13 | NUR ---
IVF STILL INFUSING, PT ASLEEP, RESPIRATION EVEN AND UNLABORED.
[2020-04-08] MEDS: HYDROmorphone 1 MG/ML AMP IVP PRN ×7 (02:41→23:23)
[2020-04-08] MEDS: ONDANSETRON 4 MG/2 ML VIAL IVP PRN ×5 (02:43→22:23)
[2020-04-08 04:00] VITALS: BP 144/76
[2020-04-08] MEDS: HYDROcodone/APAP 5/325 MG 1 TAB TAB PO PRN ×3 (04:01→20:40)
[2020-04-08] MEDS: DEXTROSE 50% 50 ML SYR IVP PRN ×4 (05:59→20:20)
--- NOTE | 2020-04-08 06:11 | NUR ---
BLOOD SUGAR 60. D 50 GIVEN IVP PRN ORDERED, PT AWAKE. NO SOB, CALL LIGHT WITHIN REACH.
[2020-04-08 06:13] LABS: BASOPHILS % (AUTO) 0.3 % (0.0-2.0); EOSINOPHILS # (AUTO) 0.1 K/uL (0-0.4); EOSINOPHILS % (AUTO) 1.2 % (0.0-4.0); HEMATOCRIT 28.8 % (36-48); HEMOGLOBIN 9.9 g/dL (12.0-16.0); LYMPHOCYTES % (AUTO) 8.2 % (20.5-51.1); MEAN CORPUSCULAR HEMOGLOBIN 30 pg (27-31); MEAN CORPUSCULAR HGB CONC 34 g/dL (33-37); MEAN CORPUSCULAR VOLUME 87.6 fL (80-94); MONOCYTES # (AUTO) 1.3 K/uL (0.8-1.0); MONOCYTES % (AUTO) 10.5 % (1.7-9.3); NEUTROPHILS # (AUTO) 10.1 K/uL (1.8-7.7); NEUTROPHILS % (AUTO) 79.8 % (42.2-75.2); PLATELET COUNT (AUTO) 285 K/uL (140-450); RED BLOOD CELL COUNT(AUTO) 3.29 MIL/uL (4.20-5.40); RED CELL DISTRIBUTION WIDTH 14.2 % (11.6-13.7); WHITE BLOOD COUNT (AUTO) 12.6 K/uL (4.8-10.8)
[2020-04-08] MEDS: BLOOD GLUCOSE MONITORING 1 DEV DEV FS SCH ×4 (06:54→20:20)
[2020-04-08 07:04] LABS: ALBUMIN 1.3 g/dL (3.4-5.0); ANION GAP 13.7 (8-16); CARBON DIOXIDE 26.2 mmol/L (21-32); POTASSIUM 3.9 mmol/L (3.5-5.1); TOTAL BILIRUBIN 0.2 mg/dL (0.0-1.0)
[2020-04-08 07:07] LABS: MAGNESIUM 1.8 mg/dL (1.8-2.4); PHOSPHORUS 6.5 mg/dL (2.5-4.9)
--- NOTE | 2020-04-08 07:35 | NUR ---
PT IS STABLE, BEDSIDE ENDORSEMENT GIVEN TO AM SHIFT RN FOR CONTINUITY OF CARE.
--- NOTE | 2020-04-08 08:10 | NUR ---
PT STATES NO PAIN AT THIS TIME AND RESTING COMFORTABLY IN BED.
[2020-04-08] MEDS: CALCIUM ACETATE 667 MG TAB PO SCH ×3 (08:31→16:26)
[2020-04-08] MEDS: DOCUSATE SODIUM 250 MG GELCAP PO SCH (08:32)
[2020-04-08] MEDS: LACTULOSE 20 GM/30 ML UDC PO SCH (08:32)
[2020-04-08] MEDS: lisinopriL 20 MG TAB PO SCH (08:32)
[2020-04-08] MEDS ORDERED: VANCOMYCIN 1,000 MG in DEXTROSE 5% 250 ML IV SCH (09:00)
[2020-04-08 09:02] LABS: CREATININE 7.3 mg/dL (0.6-1.3)
--- NOTE | 2020-04-08 11:56 | NUR ---
PT GLUCOSE IS 46, ASYMPTOMATIC AND STATES NO PAIN AT THIS TIME. ADMINISTERING D50.
[2020-04-08 12:00] VITALS: BP 156/99
--- NOTE | 2020-04-08 12:47 | NUR ---
PT STATES NO PAIN AT THIS TIME. REASESSED BLOOD GLUCOSE: 73, CONTINUES TO BE ASYMPTOMATIC. GAVE PT 2 JUICE BOXES.
[2020-04-08] MEDS: QUEtiapine FUMARATE 25 MG TAB PO SCH (16:26)
--- NOTE | 2020-04-08 17:46 | NUR ---
PT BLOOD GLUCOSE 51, GAVE D50. REASSESSED BLOOD GLUCOSE: 78. PT WAS ASYMPTOMATIC THROUGHOUT ANS STATED NO PAIN AT THIS TIME.
--- NOTE | 2020-04-08 18:37 | NUR ---
PT STATED PAIN 10/10 AT MEDIAL ABD THAT IS ACHING AND CONSTANT. PT GIVEN DILAUDID AND WILL CONTINUE TO MONITOR.
--- NOTE | 2020-04-08 19:26 | NUR ---
PT STABLE AND ADMINISTERED DILAUDID 1859 FOR 10/10 MID ABD PAIN THAT WAS ACHING AND CONSTANT. AFTER REASSESSMENT PT STATED 2/10 PAIN THAT IS TOLERABLE. PT STABLE AND CARE ENDORSED TO TREE DRILLER RN.
--- NOTE | 2020-04-08 19:30 | NUR ---
RECEIVED PATIENT IN STABLE CONDITION FROM AM SHIFT NURSE FOR CONTINUITY OF CARE. AAOX4. RESPIRATIONS EVEN, UNLABORED. SKIN WARM, DRY. DIALYSIS ACCESS TO RIGHT IJ INTACT. DRESSING CLEAN/DRY AND INTACT. IV SITE TO FOREARM 22G PATENT/INTACT, INFUSING FLUIDS WELL. NO C/O PAIN. NO S/S ACUTE DISTRESS. ABDOMEN SOFT, NONTENDER, NONDISTENDED. BOWEL SOUNDS ACTIVE X4 QUADRANTS. PATIENT IS CONTINENT OF B/B. PLAN OF CARE DISCUSSED. CALL LIGHT WITHIN REACH. SAFETY PRECAUTIONS IN PLACE. WILL CONTINUE TO MONITOR.
[2020-04-08 20:00] VITALS: BP 156/79
--- NOTE | 2020-04-08 21:30 | NUR ---
DUE MEDS GIVEN. PATIENT C/O IV SITE WAS TENDER. NO REDNESS NOTED, BUT DISCOMFORT NOTED UPON FLUSHING LINE. REMOVED SITE TO RIGHT FOREARM, CANNULA INTACT. MINIMAL DISCOMFORT NOTED BY PATIENT. IV SITE CHANGED TO LEFT WRIST 24G USING ASEPTIC TECHNIQUE. GOOD BLOOD RETURN. IV FLUIDS INFUSING WELL. CALL LIGHT WITHIN REACH.
--- NOTE | 2020-04-08 23:10 | NUR ---
PATIENT RESTING COMFORTABLY IN BED. NO S/S ACUTE DISTRESS. CALL LIGHT WITHIN REACH.
--- NOTE | 2020-04-09 00:30 | NUR ---
CLARIFIED VANCOMYCIN ORDER WITH DR EVANS, ERP CONSULTANT FOR DR STEVENS. THERE IS NO AVAILABILITY FOR VANCOMYCIN SUSPENSION AT THIS TIME. OKAY TO ADMINISTER IT WHEN IN HOUSE PHARMACY ARRIVES. PATIENT IS RESTING COMFORTABLY IN BED. CALL LIGHT WITHIN REACH.
[2020-04-09] MEDS: DEXTROSE 10% 1,000 ML IV SCH (00:38)
--- NOTE | 2020-04-09 01:43 | NUR ---
MADE ROUNDS. PATIENT IS ASLEEP. NO S/S ACUTE DISTRESS. CALL LIGHT WITHIN REACH.
[2020-04-09] MEDS: ONDANSETRON 4 MG/2 ML VIAL IVP PRN ×3 (02:53→21:13)
--- NOTE | 2020-04-09 03:00 | NUR ---
PATIENT IS ASLEEP. NO S/S ACUTE DISTRESS. CALL LIGHT WITHIN REACH.
[2020-04-09] MEDS: HYDROmorphone 1 MG/ML AMP IVP PRN ×4 (03:23→21:13)
[2020-04-09 04:00] VITALS: BP 156/83
[2020-04-09] MEDS: HYDROcodone/APAP 5/325 MG 1 TAB TAB PO PRN ×3 (05:03→17:20)
[2020-04-09] MEDS: VANCOMYCIN 500 MG VIAL PO SCH ×4 (05:06→23:00)
--- NOTE | 2020-04-09 05:06 | NUR ---
CONTINUE TO HOLD VANCOMYCIN DOSE UNTIL AVAILABLE BY PHARMACY. AWARE.
[2020-04-09] MEDS: BLOOD GLUCOSE MONITORING 1 DEV DEV FS SCH ×4 (06:32→21:14)
--- NOTE | 2020-04-09 07:25 | NUR ---
RECEIVED PT FROM WORLD RENOWNED CHEF AND RESTAURANT OWNER NURSE, PT IS ON ROOM AIR, IV TO L. WRIST 24G @30ML/HR D5, CONTINENT, SAFETY AND FALL PRECAUTIONS IN PLACE, WILL CONTINUE TO MONITOR.
[2020-04-09] MEDS: DOCUSATE SODIUM 250 MG GELCAP PO SCH (08:52)
[2020-04-09] MEDS: LACTULOSE 20 GM/30 ML UDC PO SCH (08:52)
[2020-04-09] MEDS: EPOETIN ALFA 10,000 UNITS/ML VIAL IV SCH (08:52)
[2020-04-09] MEDS: CALCIUM ACETATE 667 MG TAB PO SCH ×3 (08:53→17:19)
[2020-04-09] MEDS: lisinopriL 20 MG TAB PO SCH (08:53)
--- NOTE | 2020-04-09 08:55 | NUR ---
SCHEDULED MEDICATIONS ADMINISTERED, , BP 141/73, O2 93%, HR 80, RR 18, NORCO PROVIDED FOR ABDOMINAL PAIN, PT TOLERATED MEDICATIONS WELL, EDUCATION PROVIDED, PT VERBALIZED UNDERSTANDING, WILL CONTINUE TO MONITOR
--- NOTE | 2020-04-09 10:30 | NUR ---
DIALYSIS WAS STARTED NOW.
--- NOTE | 2020-04-09 11:22 | NUR ---
04/09/20 RD FOLLOW UP COMPLETED. PLEASE REFER TO NUTRITION ASSESSMENT UNDER CARE ACTIVITY FOR ESTIMATED NUTRITIONAL NEEDS. 1. CONTINUE RENAL DIET WITH NEPRO BID 2. ENCOURAGE PATIENT TO INCREASE PO INTAKE 3. RD TO FOLLOW-UP 2-3 DAYS, HIGH RISK PABLO NIEVES, RD
--- NOTE | 2020-04-09 12:37 | NUR ---
SCHEDULED MEDICATION ADMINISTERED, HEMODIALYSIS NURSE IS AT BEDSIDE, PAIN MEDICATION ADMINISTERED, WILL CONTINUE TO MONITOR, MYA 151/100, HR 101, RR 20, 100, WILL CONTINUE TO MONITOR
--- NOTE | 2020-04-09 13:30 | NUR ---
DIALYSIS IS FINISHED NOW, OUTPUT IS 2.5 LITERS, BP IS 142/83, PULSE IS 98, O2 SATURATION IS 93%,
[2020-04-09 16:00] VITALS: BP 140/84
[2020-04-09] MEDS: QUEtiapine FUMARATE 25 MG TAB PO SCH (17:19)
[2020-04-09] MEDS: DEXTROSE 50% 50 ML SYR IVP PRN (17:25)
--- NOTE | 2020-04-09 17:30 | NUR ---
SCHEDULED MEDICATION ADMINISTERED W/IN PARAMETERS, 153/72 HR97, RR 18, O2 97, PAIN 6 OUT OF 10, PT GLUCOSE LEVEL 27, D50 ADMINISTERED PER PROTOCOL, WILL CONTINUE TO MONITOR.
--- NOTE | 2020-04-09 18:10 | NUR ---
GLUCOSE RECHECKED, GLUCOSE LEVEL IS NOW 82, ENCOURAGED PT TO DRINK APPLE JUICE AND EAT DINNER, WILL CONTINUE TO MONITOR.
--- NOTE | 2020-04-09 19:15 | NUR ---
ENDORSED PT TO TECHNICIAN TEST SYSTEMS NURSE FOR CONTINUITY OF CARE.
--- NOTE | 2020-04-09 19:15 | NUR ---
RECEIVED PT AAOX4 , NID - O2 SAT WNL . IV SITE INTACT AND PATENT - W/ RIJ - HAD DIALYSIS TODAY W/ 2.5 U.O . STOOL C DIFF + - WILL MONITOR FOR DIARRHEA . C/O ANBOMILA PAIN AND NAUSEA - WILL MEDICATE ORDERED .SAFETY MEASURES IN PLACE - CALL LIGHT WITHIN REACH . PLAN OF CARE DISCUSSED AND VERBALIZE UNDERSTANDING . WILL CONT. TO MONITOR .
[2020-04-10] VITALS: BP 140/90
--- NOTE | 2020-04-10 | NUR ---
MADE ROUNDS , NO S/SX OF ACUTE DISTRESS NOTD . WILL CONT. TO MONITOR . CALL LIGHT WITHIN REACH .
[2020-04-10] MEDS: DEXTROSE 10% 1,000 ML IV SCH (01:10)
--- NOTE | 2020-04-10 02:03 | NUR ---
SLEEPING - CHEST RISE AND FALL EQUALLY . CALL LIGHT WITHIN REACH . WILL CONT. TO MONITOR
[2020-04-10] MEDS: HYDROmorphone 1 MG/ML AMP IVP PRN ×5 (03:15→22:00)
[2020-04-10] MEDS: ONDANSETRON 4 MG/2 ML VIAL IVP PRN ×4 (03:15→20:05)
--- NOTE | 2020-04-10 04:00 | NUR ---
MADE ROUNDS , NO S/SX OF ACUT DISTRESS NOTED .
[2020-04-10] MEDS: BLOOD GLUCOSE MONITORING 1 DEV DEV FS SCH ×4 (06:00→20:02)
--- NOTE | 2020-04-10 06:20 | NUR ---
PT 'S ACCYU CHECK - 49 - D 50 /50 TO BE GIVEN ORDERED
[2020-04-10] MEDS: VANCOMYCIN 500 MG VIAL PO SCH ×3 (06:21→17:37)
[2020-04-10] MEDS: DEXTROSE 50% 50 ML SYR IVP PRN ×3 (06:22→16:23)
[2020-04-10 06:25] LABS: BASOPHILS % (AUTO) 0.3 % (0.0-2.0); EOSINOPHILS # (AUTO) 0.2 K/uL (0-0.4); EOSINOPHILS % (AUTO) 2.5 % (0.0-4.0); HEMATOCRIT 29.1 % (36-48); HEMOGLOBIN 9.7 g/dL (12.0-16.0); LYMPHOCYTES % (AUTO) 11.3 % (20.5-51.1); MEAN CORPUSCULAR HEMOGLOBIN 29 pg (27-31); MEAN CORPUSCULAR HGB CONC 33 g/dL (33-37); MEAN CORPUSCULAR VOLUME 87.5 fL (80-94); MONOCYTES # (AUTO) 1.2 K/uL (0.8-1.0); MONOCYTES % (AUTO) 13.8 % (1.7-9.3); NEUTROPHILS # (AUTO) 6.5 K/uL (1.8-7.7); NEUTROPHILS % (AUTO) 72.1 % (42.2-75.2); PLATELET COUNT (AUTO) 328 K/uL (140-450); RED BLOOD CELL COUNT(AUTO) 3.33 MIL/uL (4.20-5.40); RED CELL DISTRIBUTION WIDTH 13.9 % (11.6-13.7)
--- NOTE | 2020-04-10 07:22 | NUR ---
ENDORSED TO AM SHIFT - [PT - STABLE - ENDORSED TO RE CHECK THE ACCU CHECK .
[2020-04-10 08:00] VITALS: BP 143/89
[2020-04-10] MEDS: DOCUSATE SODIUM 250 MG GELCAP PO SCH (08:12)
[2020-04-10] MEDS: LACTULOSE 20 GM/30 ML UDC PO SCH (08:12)
[2020-04-10] MEDS: CALCIUM ACETATE 667 MG TAB PO SCH ×3 (08:12→16:13)
[2020-04-10] MEDS: lisinopriL 20 MG TAB PO SCH (08:13)
--- NOTE | 2020-04-10 12:15 | NUR ---
BS 53. PT IS A/O X4. COLD AND CLAMMY TO TOUCH. WILL MEDICATE D50/50 ORDERED.
--- NOTE | 2020-04-10 13:20 | NUR ---
BS RECHECKED. OBTAINED BS 90. PT IS RESTING. NO S/S OF DISTRESS.
--- NOTE | 2020-04-10 14:59 | NUR ---
RECEIVED REPORT FROM TRADER RN. POC DISCUSSED. PT VERBALIZED ABDOMINAL PAIN. 9/10 PAIN SCALE. NO BM AT THIS TIME. KEPT PT ON CONTACT PRECAUTION. NEEDS ATTENDED.
--- NOTE | 2020-04-10 15:01 | NUR ---
ASSISTED PT TO BATHROOM. PT EXPERIENCED DIARRHEA. WILL CONTINUE TO MONITOR.
[2020-04-10 16:00] VITALS: BP 151/89
[2020-04-10] MEDS: QUEtiapine FUMARATE 25 MG TAB PO SCH (16:13)
--- NOTE | 2020-04-10 17:45 | NUR ---
BS RECHECKED AND OBTAINED 74 MG/DL. ENCOURAGED PT TO INCREASE NUTRITIONAL INTAKE TO PREVENT HYPOGLYCEMIA. PT DEMONSTRATED UNDERSTANDING.
--- NOTE | 2020-04-10 19:30 | NUR ---
ENDORSED PT TO ROOF FOREMAN RN. POC DISCUSSED. NO CHANGE OF CONDITION.
--- NOTE | 2020-04-10 19:32 | NUR ---
RECEIVED REPORT FROM LORRIE MCMAHON RN. PT AOX4 ON ROOM AIR. NO S/S RESPIRATORY DISTRESS. NO C/O PAIN AT THIS TIME. IV SITE PATENT AND INTACT, INFUSING IVF ORDERED, HAS RIJ AND 5 ABD INCISIONS S/P LAP DRAINAGE OF PERITONITIS. SAFETY MEASURES IN PLACE. CALL LIGHT WITHIN REACH. WILL CONTINUE TO MONITOR
--- NOTE | 2020-04-10 20:05 | NUR ---
PT BLOOD SUGAR 90. NO DISTRESS NOTED. POC DISCUSSED. PT VERBALIZED UNDERSTANDING. WILL CONTINUE TO MONITOR
[2020-04-10 20:30] VITALS: BP 161/96
--- NOTE | 2020-04-10 21:55 | NUR ---
OBTAINED CONSENT FROM PATIENT FOR TUNNELED DIALYSIS CATHETER PLACEMENT
--- NOTE | 2020-04-10 22:05 | NUR ---
ADMINISTERED PRN DILAUDID FOR PT C/O 01/13 ABD PAIN. TOLERATED WELL. WILL CONTINUE TO MONITOR
[2020-04-11] MEDS: VANCOMYCIN 500 MG VIAL PO SCH ×4 (00:05→17:02)
[2020-04-11] MEDS: DEXTROSE 10% 1,000 ML IV SCH (01:10)
[2020-04-11] MEDS: ONDANSETRON 4 MG/2 ML VIAL IVP PRN ×2 (01:26→11:10)
--- NOTE | 2020-04-11 01:30 | NUR ---
ADMINISTERED PRN ZOFRAN FOR PT C/O NAUSEA, TOLERATED WELL. WILL CONTINUE TO MONITOR
[2020-04-11] MEDS: HYDROmorphone 1 MG/ML AMP IVP PRN ×5 (02:51→21:44)
--- NOTE | 2020-04-11 02:55 | NUR ---
ADMINISTERED PRN DILAUDID FOR PT C/O 01/13 ABD PAIN. TOLERATED WELL. WILL CONTINUE TO MONITOR
--- NOTE | 2020-04-11 03:35 | NUR ---
PT ASLEEP IN BED. RESPIRATIONS EVEN AND UNLABORED. NO DISTRESS NOTED. WILL CONTINUE TO MONITOR
[2020-04-11 04:00] VITALS: BP 154/98
[2020-04-11 05:38] VITALS: BP 141/96
[2020-04-11] MEDS: BLOOD GLUCOSE MONITORING 1 DEV DEV FS SCH ×4 (06:11→21:00)
--- NOTE | 2020-04-11 06:35 | NUR ---
PT BLOOD SUGAR 72. NO INSULIN COVERAGE NEEDED
--- NOTE | 2020-04-11 07:50 | NUR ---
ENDORSED PT TO DAY RN FOR CONTINUITY OF CARE. PT IS IN STABLE CONDITION
[2020-04-11 08:00] VITALS: BP 138/87
[2020-04-11] MEDS: LACTULOSE 20 GM/30 ML UDC PO SCH (09:00)
[2020-04-11] MEDS: lisinopriL 20 MG TAB PO SCH (09:48)
[2020-04-11] MEDS: CALCIUM ACETATE 667 MG TAB PO SCH ×3 (09:48→17:01)
[2020-04-11] MEDS: DOCUSATE SODIUM 250 MG GELCAP PO SCH (09:48)
--- NOTE | 2020-04-11 09:50 | NUR ---
SCHEDULED MEDICATIONS DUE GIVEN. WILL CONTINUE TO MONITOR.
--- NOTE | 2020-04-11 11:12 | NUR ---
PATIENT COMPLAINS OF PAIN, DILAUDID GIVEN AT THIS TIME. PATIENT ALSO COMPLAINS OF NAUSEA, ZOFRAN GIVEN AT THIS TIME.
[2020-04-11] MEDS: DEXTROSE 50% 50 ML SYR IVP PRN ×2 (12:05→22:04)
[2020-04-11] MEDS ORDERED: QUET25TA46 PO (14:34)
[2020-04-11] MEDS ORDERED: VANC125C5 PO (14:34)
[2020-04-11] MEDS ORDERED: LISI-420 PO (14:34)
[2020-04-11 16:00] VITALS: BP 125/91
[2020-04-11] MEDS: QUEtiapine FUMARATE 25 MG TAB PO SCH (17:02)
--- NOTE | 2020-04-11 17:12 | NUR ---
PATIENT COMPLAINS OF PAIN, DILAUDID GIVEN AT THIS TIME. OTHER SCHEDULED MEDICATIONS DUE GIVEN. WILL CONTINUE TO MONITOR.
[2020-04-11] MEDS ORDERED: fentaNYL citrate 0.05 MG/ML VIAL ONE (18:55)
[2020-04-11] MEDS ORDERED: PROPOFOL 200 MG/20 ML VIAL IV ONE (18:55)
[2020-04-11] MEDS ORDERED: MIDAZOLAM 2 MG/2 ML VIAL ONE (18:55)
--- NOTE | 2020-04-11 19:43 | NUR ---
GAVE REPORT TO PENSIONS RETIREMENT PLAN SPECIALIST NURSE FOR CONTINUITY OF CARE. PATIENT IN STABLE CONDITION.
--- NOTE | 2020-04-11 20:01 | NUR ---
RECEIVED REPORT FORM GISELE LUCIANO DAYSHIFT NURSE FOR CONTINUITY OF CARE, PT IN OR AT THIS TIME. BUNNY CONTACTED AND MADE AWARE OF HD ORDER FOR TOMORROW PLACED BY MD PIERCE.
[2020-04-11] MEDS ORDERED: ONDANSETRON 4 MG/2 ML VIAL IVP PRN (20:05)
[2020-04-11] MEDS ORDERED: HYDROmorphone 1 MG/ML AMP IVP PRN (20:05)
[2020-04-11] MEDS ORDERED: diphenhydrAMINE 50 MG/ML VIAL IVP PRN (20:05)
[2020-04-11] MEDS: NACL 0.9% 1,000 ML IV SCH (20:05)
[2020-04-11] MEDS ORDERED: BLOOD GLUCOSE MONITORING 1 DEV DEV FS SCH (20:05)
[2020-04-11] MEDS ORDERED: HYDROmorphone PFS 2 MG/ML SYR ONE (20:43)
[2020-04-11 21:00] VITALS: BP 153/92
--- NOTE | 2020-04-11 21:00 | NUR ---
PT RETURNED FROM OR, SHE IS AWAKE AND ALERT. SHE HAS TRIPLE LUMEN CENTRAL LINE WELL RIGHT SUBCLAVIAN HD LINE. PT PLACED ON NORMAL SALINE AT 80MLS/HR ORDERED. PT FINGERSTICK IS 43, SHE WAS GIVEN D50 IVP AND WILL RECHECK SOON. PT SAID SHE WAS HUNGRY, WILL [place] TROOPER MD FOR NEW DIET ORDERS.
--- NOTE | 2020-04-11 22:00 | NUR ---
MD HURTADO CONTACTED AND HE REORDERED A RENAL DIET FOR PT. PT WAS ALSO GIVEN IVP DILAUDID FOR SEVERE NECK PAIN.
--- NOTE | 2020-04-11 23:30 | NUR ---
PT GIVEN ORAL VANCO ORDERED.
[2020-04-12] VITALS: BP 152/97
--- NOTE | 2020-04-12 | NUR ---
RETAKE OF FINGERSTICK IS 74, PT SAID SHE ALSO DRANK APPLE JUICE AD ATE APPLE SAUCE AND 1/2 SANDWICH. V/S FOLLOWS: T 96.9 P 89 R 18 B/P 152/97 02 93% ON ROOM AIR. ALL UNIVERSAL FALLS PRECAUTIONS IN PLACE.
[2020-04-12] MEDS: VANCOMYCIN 500 MG VIAL PO SCH ×3 (00:54→12:12)
[2020-04-12] MEDS: HYDROmorphone 1 MG/ML AMP IVP PRN ×4 (02:22→15:32)
--- NOTE | 2020-04-12 02:25 | NUR ---
PT C/O SEVERE PAIN IN NECK, PT GIVEN IVP DILAUDID. WILL CONTINUE TO MONITOR FOR PAIN.
[2020-04-12] MEDS: DEXTROSE 50% 50 ML SYR IVP PRN ×3 (06:23→16:35)
[2020-04-12] MEDS: BLOOD GLUCOSE MONITORING 1 DEV DEV FS SCH ×3 (06:33→16:35)
[2020-04-12 06:38] VITALS: BP 142/81
--- NOTE | 2020-04-12 07:15 | NUR ---
REC'D BEDSIDE ENDORSEMENT FROM NIGHTSHIFT NURSE. PATIENT IS RESTING IN BED AND STABLE. SAFETY MEASURES IN PLACE. WILL CONT TO MONITOR.
--- NOTE | 2020-04-12 07:20 | NUR ---
PATIENT PULLED OUT INTACT IV CANNULA. NIGHTSHIFT NURSE ATTEMPTED 2X WITH NO SUCCESS. WILL CONTINUE TO MONITOR Addendum: 04/12/20 at 1011 by Alina Soto RN DISREGARD NOTE
[2020-04-12 08:00] VITALS: BP 148/90
[2020-04-12] MEDS: NACL 0.9% 1,000 ML IV SCH (08:35)
[2020-04-12] MEDS: CALCIUM ACETATE 667 MG TAB PO SCH ×3 (08:37→17:04)
[2020-04-12] MEDS: LACTULOSE 20 GM/30 ML UDC PO SCH (08:38)
[2020-04-12] MEDS: DOCUSATE SODIUM 250 MG GELCAP PO SCH (08:38)
[2020-04-12] MEDS: EPOETIN ALFA 10,000 UNITS/ML VIAL IV SCH (08:38)
[2020-04-12] MEDS: lisinopriL 20 MG TAB PO SCH (08:39)
[2020-04-12] MEDS ORDERED: PHARMACY COMMENTS MC SCH (09:00)
[2020-04-12] MEDS: ONDANSETRON 4 MG/2 ML VIAL IVP PRN (09:03)
[2020-04-12] MEDS: HYDROcodone/APAP 5/325 MG 1 TAB TAB PO PRN (09:04)
--- NOTE | 2020-04-12 09:04 | NUR ---
ADMINISTERED PRESCRIBED MEDS PER MD ORDER. PATIENT STATED PAIN 10/10, ADMINISTERED PRN NORCO. PATIENT COMPLAINED OF NAUSEA ADMINISTERED PRN ZOFRAN. PATIENT TOLERATED MEDS WELL. MEDICATION EDUCATION PROVIDED. PATIENT VERBALIZED UNDERSTANDING. SAFETY MEASURES IN PLACE. WILL CONT TO MONITOR.
--- NOTE | 2020-04-12 10:15 | NUR ---
HD NURSE AT BEDSIDE TO DO HD. REPORT GIVEN. WILL CONTINUE TO MONITOR
--- NOTE | 2020-04-12 11:07 | NUR ---
ADMINISTERED PRN MEDS FOR 8/10 PAIN. PATIENT TOLERATED WELL. MEDICATION EDUCATION PROVIDED. PATIENT VERBALIZED UNDERSTANDING. SAGFETY MEASURES IN PLACE. WILL CONT TO MONITOR.
--- NOTE | 2020-04-12 13:13 | NUR ---
HOURLY ROUNDING PERFORMED. PATIENT IS IN BED, UNDERGOING HD. GAVE PATIENT WARM BLANKET PER REQUEST. DIALYSIS NURSE AT BEDSIDE. SAFETY MEASURES IN PLACE. WILL CONT TO MONITOR.
--- NOTE | 2020-04-12 13:30 | NUR ---
HD IS COMPLETE. 2L TAKEN OUT. PT TOLERATED WELL. WILL CONTINUE TO MONITOR
--- NOTE | 2020-04-12 15:30 | NUR ---
PT AWARE OF DISCHARGE AND WANTS TO GO HOME AROUND 1700. WILL CONTINUE TO MONITOR
--- NOTE | 2020-04-12 15:32 | NUR ---
PT COMPLAINING 8/10 PAIN IN ABD AND WANTS PAIN MEDS PRIOR TO REMOVAL OF LYNDSAY. SAFETY MEASURES IN PLACE. WILL CONTINUE TO MONITOR
[2020-04-12 16:00] VITALS: BP 157/86
--- NOTE | 2020-04-12 16:18 | NUR ---
REMOVED INTACT 16 LYNDSAY ON ABD ORDERED PER DR REGAN. PT TOLERATED WELL. EDUCATED PT ON AT HOME INSTRUCTIONS FOR WOUND CARE. SUPPLIES TO GO WITH PATIENT. PT VERBALIZED UNDERSTANDING. SAFETY MEASURES IN PLACE. WILL CONTINUE TO MONITOR
--- NOTE | 2020-04-12 16:37 | NUR ---
BS 43, ADMINISTERED PRESCRIBED D5 PER MD ORDER. PATIENT TOLERATED WELL. MEDICATION EDUCATION PROVIDED. PATIENT VERBALIZED UNDERSTANDING. SAFETY MEASURES IN PLACE. WILL CONT TO MONITOR.
[2020-04-12] MEDS: QUEtiapine FUMARATE 25 MG TAB PO SCH (17:04)
--- NOTE | 2020-04-12 17:07 | NUR ---
PT BLOOD SUGAR IS 101 AFTER GIVING D5. PT TOLERATING WELL. WILL CONTINUE TO MONITOR
--- NOTE | 2020-04-12 17:07 | NUR ---
ADMINISTERED PRESCRIBED MEDS PER MD ORDER. PATIENT TOLERATED WELL. MEDICATION EDUCATION PROVIDED. PATIENT VERBALIZED UNDERSTANDING. SAFETY MEASURES IN PLACE. WILL CONT TO MONITOR.
[2020-04-12 17:13] VITALS: BP 157/86
--- NOTE | 2020-04-12 17:50 | NUR ---
WENT OVER DISCHARGE INSTRUCTIONS WITH PATIENT. PT SIGNED APPROPRIATE DOCUMENTS. EDUCATED PT TO VISIT ED FOR ANY SIGNS OF DISTRESS, FOLLOW UP APPOINTMENT, INCISION CARE MANAGEMENT, AND MEDICATIONS. PT VERBALIZED UNDERSTANDING. REMOVED INTACT CENTRAL LINE. PT TOLERATED WELL. INCISION PICTURES TAKEN PROPR TO DISCHARGE. PT GATHERED ALL OF HER BELONGINGS AND CHANGED INTO HER OWN CLOTHES. PT IS STABLE TO GO HOME
== END 2020-04-12 17:50 | disposition home or self-care (01) | DRG 466 ==
LOC: MED 20:02 → MMU 03-29 00:33 → MIC 03-29 01:15 → MTU 03-29 19:58 → MMU 04-03 09:05 → MTU 04-04 13:21 → MMU 04-04 13:36
PROVIDERS: ADMIT Internal Medicine; ATTEND Internal Medicine
PROC: 0W9G4ZZ Drainage of Peritoneal Cavity, Percutaneous Endoscopic Approach (ICD-10-PCS; 2020-04-01)
PROC: 02H633Z Insertion of Infusion Device into Right Atrium, Percutaneous Approach (ICD-10-PCS; 2020-04-01)
PROC: B548ZZA Ultrasonography of Superior Vena Cava, Guidance (ICD-10-PCS; 2020-04-01)
PROC: 0WPGX3Z Removal of Infusion Device from Peritoneal Cavity, External Approach (ICD-10-PCS; principal; 2020-04-01 09:00)
PROC: 5A1D70Z Performance of Urinary Filtration, Intermittent, Less than 6 Hours Per Day (ICD-10-PCS; 2020-04-02)
PROC: 5A1D70Z Performance of Urinary Filtration, Intermittent, Less than 6 Hours Per Day (ICD-10-PCS; 2020-04-03)
PROC: 5A1D70Z Performance of Urinary Filtration, Intermittent, Less than 6 Hours Per Day (ICD-10-PCS; 2020-04-05)
PROC: 30233N1 Transfusion of Nonautologous Red Blood Cells into Peripheral Vein, Percutaneous Approach (ICD-10-PCS; 2020-04-07)
PROC: 5A1D70Z Performance of Urinary Filtration, Intermittent, Less than 6 Hours Per Day (ICD-10-PCS; 2020-04-07)
PROC: 5A1D70Z Performance of Urinary Filtration, Intermittent, Less than 6 Hours Per Day (ICD-10-PCS; 2020-04-09)
PROC: 02HV33Z Insertion of Infusion Device into Superior Vena Cava, Percutaneous Approach (ICD-10-PCS; 2020-04-11)
PROC: B548ZZA Ultrasonography of Superior Vena Cava, Guidance (ICD-10-PCS; 2020-04-11)
PROC: 0JH63XZ Insertion of Tunneled Vascular Access Device into Chest Subcutaneous Tissue and Fascia, Percutaneous Approach (ICD-10-PCS; 2020-04-11)
PROC: 02H633Z Insertion of Infusion Device into Right Atrium, Percutaneous Approach (ICD-10-PCS; 2020-04-11)
PROC: B548ZZA Ultrasonography of Superior Vena Cava, Guidance (ICD-10-PCS; 2020-04-11)
PROC: 02PAX3Z Removal of Infusion Device from Heart, External Approach (ICD-10-PCS; 2020-04-11)
PROC: 5A1D70Z Performance of Urinary Filtration, Intermittent, Less than 6 Hours Per Day (ICD-10-PCS; 2020-04-12)
DX: T85.71XA Infection and inflammatory reaction due to peritoneal dialysis catheter, initial encounter (principal); N18.6 End stage renal disease; A40.1 Sepsis due to streptococcus, group B; K65.2 Spontaneous bacterial peritonitis; E87.1 Hypo-osmolality and hyponatremia; E87.5 Hyperkalemia; A04.72 Enterocolitis due to Clostridium difficile, not specified as recurrent; I12.0 Hypertensive chronic kidney disease with stage 5 chronic kidney disease or end stage renal disease; E87.6 Hypokalemia; Z99.2 Dependence on renal dialysis; F12.90 Cannabis use, unspecified, uncomplicated; K59.00 Constipation, unspecified; D72.819 Decreased white blood cell count, unspecified; Y83.8 Other surgical procedures as the cause of abnormal reaction of the patient, or of later complication, without mention of misadventure at the time of the procedure; N73.9 Female pelvic inflammatory disease, unspecified; D63.8 Anemia in other chronic diseases classified elsewhere; L03.114 Cellulitis of left upper limb; Y92.89 Other specified places as the place of occurrence of the external cause; Z20.828 Contact with and (suspected) exposure to other viral communicable diseases
CPT/HCPCS: 36415; 71045; 74022; 77003; 80048; 80053; 80170; 80202; 80305; 81001; 82945; 82948; 83605; 83690; 83735; 84100; 84157; 84702; 85025; 85610; 85730; 86704; 86706; 86708; 86709; 86803; 86886; 86900; 86901; 86920; 87040; 87070; 87075; 87081; 87186; 87205; 87340; 89051; 90935; 93005; 94640; 96365; 96372; 96375; 99291; C1894; J0330; J0696; J0885; J1100; J1170; J1580; J1644; J1815; J2001; J2175; J2250; J2270; J2370; J2405; J2543; J2704; J2710; J3010; J3370; J3480; J3490; J7060; J7613; P9016